=== PATIENT | female | born 1935 | race Caucasian/White ===

== ENCOUNTER → 2019-01-16 | Outpatient (CLI) | payer MEDICARE, OTHER ==
[2015-09-16 22:36] VITALS: BP 114/57
[~2019-01-16] MED LIST: ASPI-482 PO; CLOP75TA PO; FLUC100T7 PO; GABA-586 PO; INSU100C4 SQ; INSU100V31 SQ; INSU100V8 SQ; LISI2.5T PO; MELO15TA23 PO; METO-239 PO; SIMV20TA3 PO; SULF1TAB24 PO
--- NOTE | 2019-01-16 17:23 | RAD ---
EXAM: AP, oblique and lateral views of the right foot DATE: 01/16/2019 11:37 AM INDICATION: RIGHT FOOT PAIN, NO KNOWN INJURY COMPARISON: No Prior FINDINGS: No evidence of acute fracture or dislocation. Decreased bone mineral density. Calcaneal enthesopathy. Small midfoot degenerative osteophytes are seen. IMPRESSION: 1. No evidence of acute fracture or dislocation. 2. Calcaneal enthesopathy 3. Midfoot degenerative change. Electronically signed by: Bobo Baker MD (01/16/2019 5:20 PM) [facility]
== END | disposition home or self-care (01) ==
LOC: PMG 11:19
PROVIDERS: ATTEND Physician Assistant
DX: M77.31 Calcaneal spur, right foot (principal); M19.071 Primary osteoarthritis, right ankle and foot; M25.774 Osteophyte, right foot
CPT/HCPCS: 73630

== ENCOUNTER 2019-07-14 10:35 | Inpatient (IN) | payer MEDICARE, OTHER ==
[~2019-07-14] VITALS: Ht 154.9 cm; Wt 71.4 kg
[2019-07-14] MEDS ORDERED: IV NORMAL SALINE 1,000ML 1,000 ML IV ONE (10:45)
[2019-07-14] MEDS ORDERED: ONDANSETRON PF 4 MG/2 ML VIAL. IV ONE (11:00)
[2019-07-14 11:59] LABS: BASO # 0.1 x10^3/uL (0.0-0.2); BASO % 1 % (0-3); EOS % 0 % (0-3); HEMATOCRIT 37.4 % (36.0-47.0); HEMOGLOBIN 12.4 g/dL (12.0-15.5); LYMPH # 0.6 x10^3/uL (1.0-4.8); LYMPH % 4 % (24-48); MEAN CORPUSCULAR HEMOGLOBIN 31 pg (25-35); MEAN CORPUSCULAR HGB CONC 33 g/dL (31-37); MEAN CORPUSCULAR VOLUME 93 fL (79-100); MONO % 8 % (0-9); NEUT # 11.2 x10^3uL (1.8-7.7); NEUT % 88 % (31-73); PLATELET COUNT 175 x10^3/uL (140-400); RED BLOOD COUNT 4.01 x10^6/uL (3.50-5.40); RED CELL DISTRIBUTION WIDTH 13.8 % (11.5-14.5); WHITE BLOOD COUNT 12.8 x10^3/uL (4.0-11.0)
[2019-07-14 12:20] LABS: ALBUMIN 3.4 g/dL (3.4-5.0); ALBUMIN/GLOBULIN RATIO 0.9 (1.0-1.7); CALCIUM 9.4 mg/dL (8.5-10.1); CREATININE 3.4 mg/dL (0.6-1.0); GFR 12.9; POTASSIUM 3.5 mmol/L (3.5-5.1); TOTAL BILIRUBIN 0.8 mg/dL (0.2-1.0); TOTAL PROTEIN 7.3 g/dL (6.4-8.2)
[2019-07-14 13:37] LABS: BACTERIA,URINE 0 /HPF (0-FEW); BILIRUBIN,URINE NEG (NEG); CLARITY,URINE HAZY; COLOR,URINE YELLOW; GLUCOSE,URINE >=1000 mg/dL (NEG); NITRITE,URINE NEG (NEG); RBC,URINE RARE /HPF (0-2); SQUAMOUS EPITHELIAL CELL,UR OCC /LPF; UROBILINOGEN,URINE 0.2 mg/dL (0.2 mg/dL); WBC,URINE 0 /HPF (0-4)
--- NOTE | 2019-07-14 13:59 | PHYS DOC ---
Past History Past Medical History: CAD, Depression, Gallstones, UTI Past Surgical History: Cholecystectomy Smoking: Non-smoker Alcohol Use: None Drug Use: None Adult General Chief Complaint Chief Complaint: NAUSEA/VOMITING/DIARRHEA HPI HPI 84-year-old female presents via EMS for nausea, vomiting, and diarrhea. The patient had the symptoms last night, but was able to get back to bed. She was found by family this morning sitting next to the side of her bed with vomit and stool on her. She was too weak to get to the bathroom. Family then called EMS. The patient tells me that she was feeling well yesterday. This illness seem to come out of nowhere. The patient has felt mildly short of breath the last few days. She comes from home. She denies fever or chills. Review of Systems Review of Systems Constitutional: Denies fever or chills [] Eyes: Denies change in visual acuity, redness, or eye pain [] HENT: Denies nasal congestion or sore throat [] Respiratory: Denies cough or shortness of breath [] Cardiovascular: No additional information not addressed in HPI [] GI: Denies abdominal pain. Has nausea, vomiting, bloody stools or diarrhea [] : Denies dysuria or hematuria [] Musculoskeletal: Denies back pain or joint pain [] Integument: Denies rash or skin lesions [] Neurologic: Denies headache, focal weakness or sensory changes [] Endocrine: Denies polyuria or polydipsia [] All other systems were reviewed and found to be within normal limits, except as documented in this note. Current Medications Current Medications Current Medications Medications (Trade) Dose Ordered Sig/[facility] Start Time Stop Time Status Last Admin Dose Admin Ondansetron HCl (Zofran) 4 mg 1X ONCE 07/14/19 11:00 07/14/19 11:01 DC 07/14/19 11:43 4 MG Sodium Chloride 1,000 ml @ 1,000 mls/hr 1X ONCE 07/14/19 10:45 07/14/19 11:44 DC 07/14/19 11:43 1,000 MLS/HR Allergies Allergies Allergies Coded Allergies Type Severity Reaction Last Updated Verified iodine Allergy Intermediate 09/13/14 Yes Physical Exam Physical Exam Constitutional: Well developed, well nourished, no acute distress, non-toxic appearance. [] HENT: Normocephalic, atraumatic, bilateral external ears normal, oropharynx moist, no oral exudates, nose normal. [] Eyes: PERRLA, EOMI, conjunctiva normal, no discharge. [] Neck: Normal range of motion, no tenderness, supple, no stridor. [] Cardiovascular:Heart rate regular rhythm, no murmur [] Lungs & Thorax: Bilateral breath sounds clear to auscultation [] Abdomen: Bowel sounds normal, soft, no tenderness, no masses, no pulsatile masses. [] Skin: Warm, dry, no erythema, no rash. [] Back: No tenderness, no CVA tenderness. [] Extremities: No tenderness, no cyanosis, no clubbing, ROM intact, no edema. [] Neurologic: Alert and oriented X 3, normal motor function, normal sensory function, no focal deficits noted. [] Psychologic: Affect normal, judgement normal, mood normal. [] Current Patient Data Lab Results Laboratory Tests Test 07/14/19 11:38 07/14/19 12:55 White Blood Count 12.8 x10^3/uL (4.0-11.0) H Red Blood Count 4.01 x10^6/uL (3.50-5.40) Hemoglobin 12.4 g/dL (12.0-15.5) Hematocrit 37.4 % (36.0-47.0) Mean Corpuscular Volume 93 fL (79-100) Mean Corpuscular Hemoglobin 31 pg (25-35) Mean Corpuscular Hemoglobin Concent 33 g/dL (31-37) Red Cell Distribution Width 13.8 % (11.5-14.5) Platelet Count 175 x10^3/uL (140-400) Neutrophils (%) (Auto) 88 % (31-73) H Lymphocytes (%) (Auto) 4 % (24-48) L Monocytes (%) (Auto) 8 % (0-9) Eosinophils (%) (Auto) 0 % (0-3) Basophils (%) (Auto) 1 % (0-3) Neutrophils # (Auto) 11.2 x10^3uL (1.8-7.7) H Lymphocytes # (Auto) 0.6 x10^3/uL (1.0-4.8) L Monocytes # (Auto) 1.0 x10^3/uL (0.0-1.1) Eosinophils # (Auto) 0.0 x10^3/uL (0.0-0.7) Basophils # (Auto) 0.1 x10^3/uL (0.0-0.2) Sodium Level 146 mmol/L (136-145) H Potassium Level 3.5 mmol/L (3.5-5.1) Chloride Level 108 mmol/L (98-107) H Carbon Dioxide Level 25 mmol/L (21-32) Anion Gap 13 (6-14) Blood Urea Nitrogen 40 mg/dL (7-20) H Creatinine 3.4 mg/dL (0.6-1.0) H Estimated GFR (Cockcroft-Gault) 12.9 BUN/Creatinine Ratio 12 (6-20) Glucose Level 189 mg/dL (70-99) H Calcium Level 9.4 mg/dL (8.5-10.1) Total Bilirubin 0.8 mg/dL (0.2-1.0) Aspartate Amino Transferase (AST) 23 U/L (15-37) Alanine Aminotransferase (ALT) 17 U/L (14-59) Alkaline Phosphatase 77 U/L (46-116) Total Protein 7.3 g/dL (6.4-8.2) Albumin 3.4 g/dL (3.4-5.0) Albumin/Globulin Ratio 0.9 (1.0-1.7) L Urine Collection Type Unknown Urine Color Yellow Urine Clarity Hazy Urine pH 5.0 Urine Specific Prospect 1.015 Urine Protein >100 mg/dl (NEG-TRACE) Urine Glucose (UA) >=1000 mg/dL (NEG) Urine Ketones (Stick) Neg mg/dL (NEG) Urine Blood Small (NEG) Urine Nitrite Neg (NEG) Urine Bilirubin Neg (NEG) Urine Urobilinogen Dipstick 0.2 mg/dL (0.2 mg/dL) Urine Leukocyte Esterase Neg (NEG) Urine RBC Rare /HPF (0-2) Urine WBC 0 /HPF (0-4) Urine Squamous Epithelial Cells Occ /LPF Urine Bacteria 0 /HPF (0-FEW) EKG EKG [] Radiology/Procedures Radiology/Procedures [] Course & Med Decision Making Course & Med Decision Making Pertinent Labs and Imaging studies reviewed. (See chart for details) The patient's labs remarkable for slightly elevated white count. Her creatinine is also 3.4. Her baseline appears to be 1.7. The patient does appear to be hydrated. She is getting IV fluids. The patient's chest x-ray is significant for a left-sided pneumonia. She has not been in a care facility within [address] her on Rocephin and azithromycin. Patient is in agreement with admission. I discussed the patient with Dr. Blair and he has accepted her for admission. [] Dragon Disclaimer Dragon Disclaimer This electronic medical record was generated, in whole or in part, using a voice recognition dictation system. Departure Departure: Impression: Primary Impression: USHA (acute kidney injury) Additional Impressions: Vomiting and diarrhea Pneumonia involving left lung Disposition: ADMITTED INPATIENT Admitting Physician: Johnny Blair Condition: STABLE Referrals: ROGELIO CLAY (PCP) Problem Qualifiers Additional Impressions: Pneumonia involving left lung Pneumonia type: due to unspecified organism Lung location: lower lobe of lung Qualified Codes: J18.1 - Lobar pneumonia, unspecified organism XIN MENON DO Jul 14, 2019 13:59
[2019-07-14] MEDS ORDERED: ONDANSETRON PF 4 MG/2 ML VIAL. IV PRN (14:15)
[2019-07-14] MEDS ORDERED: ACETAMINOPHEN 325 MG TABLET PO PRN (14:15)
--- NOTE | 2019-07-14 14:27 | RAD ---
CHEST AP ONLY Clinical Indication: Cough Comparison: 09/16/2015 two-view chest x-ray exam. Findings: Portable frontal view chest was obtained. The cardiomediastinal silhouette is normal. Opacification involving the left mid lung field noted. Nodular component is questioned as well the left perihilar region. There is no pneumothorax. No pleural effusion is appreciated. No acute bone abnormality. Osteopenia noted. IMPRESSION: Left midlung opacification including nodular density which is concerning for infiltrate. Interval follow-up two-view chest x-ray exam to assess resolution is recommended. Electronically signed by: Peng Cutler MD (07/14/2019 2:24 PM) [facility]
[2019-07-14] MEDS ORDERED: AZITHROMYCIN 500 MG in IV NORMAL SALINE 250ML 250 ML IV ONE (14:30)
[2019-07-14] MEDS ORDERED: IV NORMAL SALINE 250ML 250 ML ONE ×2 (14:32→14:51)
[2019-07-14] MEDS ORDERED: IV NORMAL SALINE 50ML 50 ML ONE (14:32)
[2019-07-14] MEDS ORDERED: cefTRIAXone SODIUM 1 GM VIAL ONE (14:32)
[2019-07-14] MEDS ORDERED: AZITHROMYCIN 500 MG VIAL. IV ONE ×2 (14:32→14:51)
--- NOTE | 2019-07-14 19:30 | NUR ---
The patient, NICK MASON, 84 y/o, F admitted by DIANA CASTANEDA MD, to room 107, was given written information regarding hospital policies, unit procedures and contact persons. Valuables were checked and left with the pt. Physical and social needs were assessed. Medication and surgical history were discussed. Pt placed on telemetry. Will continue to monitor.
[2019-07-14] MEDS ORDERED: traMADol 50 MG TABLET PO PRN (19:45)
--- NOTE | 2019-07-14 19:57 | HP ---
ADMIT DATE: 07/14/2019 ATTENDING PHYSICIAN: Dr. Castaneda. CHIEF COMPLAINT: Weakness and GI symptoms. HISTORY OF PRESENT ILLNESS: The patient is an 84-year-old female with multiple medical issues. She is diabetic for the last 2 days. She has had nausea, vomiting, profound weakness to the point she cannot walk. As part of the workup, she was found to have an infiltrate on the chest x-ray involving the left mid lung field. She has had some minimal shortness of breath. She has community-acquired pneumonia. She is also diabetic. I also noticed a creatinine of 3.4 mg/dL. She is not on a diuretic. She had been on the nonsteroidal agent along with sulfa drugs. These drugs have been held. We will monitor daily chemistries along with IV hydration and IV antibiotics. PAST MEDICAL HISTORY: Significant for type 2 diabetes, chronic kidney disease stage 4, diabetic nephropathy, essential hypertension, pain in her legs with the diabetic neuropathy and degenerative arthritis. ALLERGIES: She has allergies to IODINE. She is a nonsmoker, nondrinker. CURRENT MEDICINES: Include aspirin, Plavix, Diflucan, Neurontin, insulin regular and Lantus, lisinopril, Mobic, metoprolol, Zocor and trimethoprim sulfa. SOCIAL HISTORY: She is a nonsmoker, nondrinker. FAMILY HISTORY: Noncontributory. REVIEW OF SYSTEMS: Significant for the localized GI symptoms. No recent travel, no fevers, mild chills, some nausea. She has had significant arthritis with bilateral feet pain. All other systems were reviewed and determined to be negative. PAST SURGICAL HISTORY: Includes cholecystectomy. PHYSICAL EXAMINATION: GENERAL: When I saw her, this is alert, elderly female who gave succinct history. INITIAL VITAL SIGNS: Showed a blood pressure of 117/57, pulse was 75 and regular. She was afebrile. HEENT: Head is without trauma. Pupils were reactive. Sclerae nonicteric. Oropharynx clear. Mucous membranes dry. NECK: Supple, no bruits identified. LUNGS: Minimal rhonchi at the left mid lung field. CARDIOVASCULAR: Showed distant heart tones. No obvious gallops. Peripheral pulses are palpable and full. ABDOMEN: Soft, scaphoid, nontender, no organomegaly. Bowel sounds are hypoactive. EXTREMITIES: Showed no cyanosis or edema. NEUROLOGIC: Focally intact. Speech is fluent. She is weak and nonambulatory at this time. PERTINENT LABORATORY AND X-RAY STUDIES: Chest x-ray as noted. LABORATORY DATA: Hemoglobin is 12.4 g/dL with white count of 12,800. Chemistry panel showed a sodium of 146, potassium 3.5 mEq per liter, BUN 40, creatinine 3.4 mg/dL. Nonfasting blood sugar 189 mg/dL. ASSESSMENT: 1. An 84-year-old female with community-acquired pneumonia, left mid lung field. 2. Gastroenteritis. 3. Dehydration. 4. Acute on chronic renal failure. 5. Diabetic neuropathy. 6. Diabetic nephropathy. 7. Degenerative arthritis. PLAN: 1. Admit to the inpatient unit. 2. Gentle IV hydration. 3. I have held her nonsteroidal and Bactrim. 4. Serial chemistries. 5. Diabetic diet. 6. Accu-Cheks. The patient is a DNR per advanced directive. We were respect to her wishes. DIANA CASTANEDA MD DR: YASMEEN/dilia JOB#: [id number] / [id number]
[2019-07-14 20:07] VITALS: BP 153/74
[2019-07-14] MEDS: METOPROLOL TART IMMED RELEASE 25 MG TABLET PO SCH (22:15)
[2019-07-14 22:43] VITALS: BP 124/67
[2019-07-15 05:51] VITALS: BP 127/64
[2019-07-15] MEDS: PANTOPRAZOLE 40 MG TABLET. PO SCH (09:21)
[2019-07-15] MEDS: GABAPENTIN 300 MG CAPSULE. PO SCH ×2 (09:21→21:27)
[2019-07-15] MEDS: CLOPIDOGREL BISULFATE 75 MG TABLET PO SCH (09:22)
[2019-07-15] MEDS: LINAGLIPTIN 5 MG TABLET PO SCH (09:22)
[2019-07-15] MEDS: METOPROLOL SUCC 24HR ER 25 MG TAB.ER.24H. PO SCH (09:22)
[2019-07-15] MEDS: INSULIN GLARGINE SYRINGE. SQ SCH ×2 (09:23→21:31)
[2019-07-15] MEDS: INSULIN LISPRO 300 UNITS/3 ML VIAL. SQ SCH ×3 (09:24→17:27)
[2019-07-15] MEDS: METOPROLOL TART IMMED RELEASE 25 MG TABLET PO SCH ×2 (09:26→21:27)
[2019-07-15 09:29] LABS: CALCIUM 8.4 mg/dL (8.5-10.1); CREATININE 3.7 mg/dL (0.6-1.0); GFR 11.7; POTASSIUM 4.3 mmol/L (3.5-5.1)
[2019-07-15 11:12] VITALS: BP 148/81
[2019-07-15] MEDS: IV NORMAL SALINE 1,000ML 1,000 ML IV SCH (11:21)
[2019-07-15 14:31] VITALS: BP 149/67
[2019-07-15] MEDS: AZITHROMYCIN 500 MG in IV NORMAL SALINE 250ML 250 ML IV SCH (14:47)
[2019-07-15 20:01] VITALS: BP 164/75
[2019-07-15] MEDS: LACTOBACILLUS RHAMNOSUS GG 1 CAPSULE. PO SCH (21:27)
[2019-07-15] MEDS: ASPIRIN ENTERIC COATED 81 MG TABLET.DR. PO SCH (21:27)
[2019-07-15] MEDS: SIMVASTATIN 20 MG TABLET PO SCH (21:28)
--- NOTE | 2019-07-16 03:11 | PN ---
DATE: ATTENDING PHYSICIAN: Dr. Castaneda. CHIEF COMPLAINT: Weakness. SUBJECTIVE: The patient is doing better. She had a good night sleep. She is up in her chair. She denied any further nausea, vomiting, diarrhea. She denied any dyspnea. She is drinking her coffee. Sugars are a bit up because we held her insulin last night. This will be restarted. She denied any chest pain, palpitation, cough or congestion. Followup lab work this morning has been ordered and still pending. We had held her nonsteroidal anti-inflammatory drug, her lisinopril and her trimethoprim sulfa. She has not had any further GI symptoms. PHYSICAL EXAMINATION: VITAL SIGNS: Her blood pressure today is 127/64, pulse is 66 and regular, temperature 98.1, oxygen saturation is 92% on room air. HEENT: Head is without trauma. Pupils are reactive. Sclerae nonicteric. The oropharynx is clear. NECK: Supple, no bruits identified. LUNGS: Otherwise clear. Good breath sounds. I do not appreciate any rhonchi. CARDIOVASCULAR: Showed regular heart tones. No obvious gallops. Peripheral pulses palpable and full. ABDOMEN: Soft, normal bowel sounds. No guarding or rebound tenderness. EXTREMITIES: Show no cyanosis or edema. NEUROLOGIC: Function is focally intact. IMAGING STUDIES: X-ray on admission noted. Followup is pending at this time. ASSESSMENT: 1. An 84-year-old female with community-acquired pneumonia, clinically stable and improved. 2. Gastroenteritis, self-limiting, resolved. 3. Dehydration, slightly better today, she appears to be euvolemic. 4. [id number] renal failure. 5. Diabetic neuropathy. 6. Diabetic nephropathy. 7. Type 2 diabetes. 8. Degenerative arthritis. PLAN: 1. Continue antibiotics as ordered. 2. I have held her Mobic, Bactrim and lisinopril, which all can aggravate her elevated creatinine and decrease her creatinine clearance. 3. Serial chemistries. Her ____ is still pending this morning. 4. Diabetic diet. 5. Restarted insulin regimen. 6. Followup chest x-ray in the morning. 7. Continue antibiotics. The patient remains a DNR per advanced directives. DIANA CASTANEDA MD DR: YASMEEN/dilia JOB#: [id number] / [id number]
[2019-07-16] MEDS: IV NORMAL SALINE 1,000ML 1,000 ML IV SCH (04:28)
[2019-07-16 06:18] VITALS: BP 131/68
[2019-07-16 06:28] LABS: CALCIUM 8.2 mg/dL (8.5-10.1); CREATININE 3.1 mg/dL (0.6-1.0); GFR 14.3; POTASSIUM 4.2 mmol/L (3.5-5.1)
[2019-07-16] MEDS: PANTOPRAZOLE 40 MG TABLET. PO SCH (08:49)
[2019-07-16] MEDS: CLOPIDOGREL BISULFATE 75 MG TABLET PO SCH (08:50)
[2019-07-16] MEDS: METOPROLOL SUCC 24HR ER 25 MG TAB.ER.24H. PO SCH (08:50)
[2019-07-16] MEDS: METOPROLOL TART IMMED RELEASE 25 MG TABLET PO SCH ×2 (08:50→21:54)
[2019-07-16] MEDS: LACTOBACILLUS RHAMNOSUS GG 1 CAPSULE. PO SCH ×2 (08:50→21:54)
[2019-07-16] MEDS: LINAGLIPTIN 5 MG TABLET PO SCH (08:50)
[2019-07-16] MEDS: GABAPENTIN 300 MG CAPSULE. PO SCH ×2 (08:50→21:54)
[2019-07-16] MEDS: INSULIN LISPRO 300 UNITS/3 ML VIAL. SQ SCH ×3 (08:52→16:30)
--- NOTE | 2019-07-16 09:21 | NUR ---
Patient is alert and oriented x4. Talkative this morning. States she has some pain with coughing but refuses pain medication. Pt sitting up in chair, breathing well, lung sounds clear. WCTM.
--- NOTE | 2019-07-16 09:24 | PN ---
DATE: 07/16/2019 ATTENDING PHYSICIAN: Dr. Castaneda. CHIEF COMPLAINT: Weakness. SUBJECTIVE: The patient is alert and doing well. She did not sleep as well as the night before. She denied any pain, dyspnea, shortness of breath. She is up in a chair. She ambulates independently without any assistance. Her appetite has been fair. Her family was by yesterday. She has 4 daughters that live in the area. OBJECTIVE FINDINGS: VITAL SIGNS: Her blood pressure today is 131/68, her pulse is 68 and regular. She is afebrile. HEENT: Head is without trauma. Pupils are reactive. Sclerae nonicteric. Oropharynx clear. LUNGS: Fairly good breath sounds and air movement without any rales, rhonchi or wheezing. CARDIOVASCULAR: Showed regular heart tones. No obvious murmurs or rubs. ABDOMEN: Soft, scaphoid, nontender, no organomegaly. Bowel sounds are normoactive. EXTREMITIES: Show no cyanosis or edema. NEUROLOGIC: Focally intact. Speech is fluent. PERTINENT LABORATORY STUDIES: Her followup chemistry today showed an improvement in her serum creatinine, it is down to 3.1 mg/dL. Her BUN is 39, potassium 4.2 mEq, nonfasting blood sugar 102. This is an improvement from yesterday's BUN and creatinine. ASSESSMENT: 1. An 84-year-old female with community-acquired pneumonia, stable. 2. Gastroenteritis self-limiting, resolved. 3. Dehydration. 4. Acute on chronic renal failure with improving creatinine. 5. Diabetic neuropathy. 6. Diabetic nephropathy. 7. Type 2 diabetes. 8. Degenerative arthritis. PLAN: 1. Continue antibiotics as ordered. 2. We have held her Mobic, Bactrim and lisinopril. We are hydrating her gently and we will order daily creatinine. 3. Followup chest x-ray. 4. Diabetic diet. 5. Insulin as ordered. 6. Discharge planning if serum creatinine improves, she can be discharged in the next 1-2 days with outpatient followup. She is alert and asymptomatic at this time. The plan has been discussed at length with her family. DIANA CASTANEDA MD DR: YASMEEN/dilia JOB#: [id number] / [id number]
--- NOTE | 2019-07-16 09:28 | RAD ---
AP view of the chest. Comparison: Chest radiograph dated 07/14/2019. Indication: Findings: Unchanged lung volume. Slightly improved but persistent left midlung zone predominant heterogenous airspace opacities. Unchanged pulmonary vasculature. No pleural effusion or pneumothorax. The cardiomediastinal silhouette is unchanged. Unchanged atherosclerotic thoracic aorta. IMPRESSION: Slightly improved but persistent left midlung zone heterogenous airspace opacities. Electronically signed by: Brice Paez MD (07/16/2019 9:25 AM) [facility]
[2019-07-16 11:06] VITALS: BP 181/72
[2019-07-16] MEDS: IV 1/2 NORMAL SALINE 1,000 ML IV SCH (13:48)
[2019-07-16] MEDS ORDERED: METOPROLOL SUCC 24HR ER 25 MG TAB.ER.24H. PO ONE (14:00)
[2019-07-16 14:42] VITALS: BP 184/73
[2019-07-16] MEDS: AZITHROMYCIN 500 MG in IV NORMAL SALINE 250ML 250 ML IV SCH (14:45)
--- NOTE | 2019-07-16 17:05 | NUR ---
Held patients insulin at dinner due to blood glucose of 74. Pt states she doesn't take her insulin at home, we are giving 10units scheduled with meals and BG 74. RN is concerned this will drop patient further. PRISCA.
[2019-07-16 19:41] VITALS: BP 174/86
[2019-07-16] MEDS ORDERED: METOPROLOL SUCC 24HR ER 25 MG TAB.ER.24H. PO SCH (21:00)
[2019-07-16] MEDS: INSULIN GLARGINE SYRINGE. SQ SCH (21:00)
[2019-07-16] MEDS: SIMVASTATIN 20 MG TABLET PO SCH (21:54)
[2019-07-16] MEDS: ASPIRIN ENTERIC COATED 81 MG TABLET.DR. PO SCH (21:54)
[2019-07-16 23:48] VITALS: BP 175/75
[2019-07-17 06:03] VITALS: BP 170/71
[2019-07-17] MEDS: IV 1/2 NORMAL SALINE 1,000 ML IV SCH ×2 (06:10→22:50)
[2019-07-17 06:22] LABS: CALCIUM 8.3 mg/dL (8.5-10.1); CREATININE 2.7 mg/dL (0.6-1.0); GFR 16.8; POTASSIUM 4.1 mmol/L (3.5-5.1)
[2019-07-17] MEDS: INSULIN LISPRO 300 UNITS/3 ML VIAL. SQ SCH ×3 (07:30→16:30)
[2019-07-17] MEDS: PANTOPRAZOLE 40 MG TABLET. PO SCH (09:12)
[2019-07-17 11:20] VITALS: BP 201/78
[2019-07-17] MEDS: LINAGLIPTIN 5 MG TABLET PO SCH (11:50)
[2019-07-17] MEDS: METOPROLOL TART IMMED RELEASE 25 MG TABLET PO SCH ×2 (11:50→20:58)
[2019-07-17] MEDS: CLOPIDOGREL BISULFATE 75 MG TABLET PO SCH (11:50)
[2019-07-17] MEDS: LACTOBACILLUS RHAMNOSUS GG 1 CAPSULE. PO SCH ×2 (11:51→20:57)
[2019-07-17] MEDS: GABAPENTIN 300 MG CAPSULE. PO SCH ×2 (11:51→20:57)
[2019-07-17 15:55] VITALS: BP 187/75
[2019-07-17] MEDS: AZITHROMYCIN 500 MG in IV NORMAL SALINE 250ML 250 ML IV SCH (17:43)
--- NOTE | 2019-07-17 19:00 | NUR ---
Shift review Pt has been pleasant and cooperative with all cares throughout the shift and has had several family visitors who are also pleasant and cooperative. Pt did not get insulin with breakfast or dinner given blood sugars but required coverage at lunch time. Pt has not c/o pain during shift, VSS. Pt's afternoon IV ABX given late d/t IV leaking at beginning of shift and requiring removal. Dr. Ram initially said IV did not have to be replaced, then ordered IV replaced and ABX given when this RN called to ask whether ABXs should be given as pt is anticipated to d/c tomorrow. Pt took a nap during the afternoon between visitors. Sheldon Starks RN Addendum: 07/17/19 at 2030 by RASHAD STARKS RN RN Pt's BPs have been high all shift, with her pressure at 191 being 199/95. Dr. Ram was called, and he ordered 25mg Hydralazine TID. Order repeated back to provider and entered into [employer].
[2019-07-17 19:15] VITALS: BP 199/95
[2019-07-17] MEDS: ASPIRIN ENTERIC COATED 81 MG TABLET.DR. PO SCH (20:57)
[2019-07-17] MEDS: hydrALAZINE 10 MG TABLET PO SCH (20:57)
[2019-07-17] MEDS: INSULIN GLARGINE SYRINGE. SQ SCH (20:58)
[2019-07-17] MEDS: SIMVASTATIN 20 MG TABLET PO SCH (20:58)
--- NOTE | 2019-07-17 22:47 | PN ---
DATE: 07/17/2019 SUBJECTIVE: The patient is sitting comfortably in her chair, in no apparent distress. On questioning her, she denied any complaints, in particular denied any nausea, vomiting, or diarrhea. Denied any chest pain, shortness of breath, cough or phlegm. Nursing staff stated that her blood pressure is extremely high at 200/70. She apparently was on lisinopril, her lisinopril was put on hold as she has acute on chronic kidney injury and she is now on metoprolol 25 mg twice a day. PHYSICAL EXAMINATION: GENERAL: When I examined her this morning, she looked well and was clearly in no apparent respiratory distress. No pallor, jaundice, cyanosis, or thyromegaly. No jugular venous distension. No lower limb edema. VITAL SIGNS: Her heart rate was 61, blood pressure was 170/71, temperature was 98.2, respiratory rate 20, and oxygen saturation was 95%. HEAD, EYES, EARS, NOSE AND THROAT: Showed normocephalic, atraumatic. NECK: Supple. HEART: Showed normal first and second heart sounds with no gallop, rub or murmur. CHEST: Clear to auscultation. No crepitation or rhonchi. ABDOMEN: Distended, soft, nontender. No guarding or rigidity. No organomegaly. All hernial orifices intact. Bowel sounds normal. NEUROLOGIC: She was awake, alert, responding appropriately. All cranial nerves intact. She moves extremities without difficulty. Her intake was 1800, output was 200. LABORATORY DATA: As of this morning showed a serum sodium 144, potassium 4.1, chloride 111, bicarbonate 23, anion gap of 10, BUN 35, creatinine 2.7, estimated GFR was 17 mL per minute. Her glucose was 96, calcium was 8.3. Her white cell count was 12,800, hemoglobin 12, hematocrit 37, MCV 93, and platelet count of 175,000. ASSESSMENT: 1. Community-acquired pneumonia for which she is on ceftriaxone and Zithromax. 2. Gastroenteritis, resolved. The patient has no further episodes of nausea, vomiting or diarrhea. 3. Dehydration. 4. Acute on chronic kidney injury, improving. Her creatinine came down from 3.7-2.7. 5. Diabetic neuropathy. 6. Diabetic nephropathy. 7. Type 2 diabetes. 8. Degenerative arthritis. PLAN: To continue with antibiotics. Continue holding her lisinopril. I will check her blood pressure again in 2 hours' time and if the blood pressure continued to be high, would probably start her on hydralazine as her heart rate is slow around in the 60s. We will repeat her lab works tomorrow. If she is back to her baseline of around 1.8-2, she can be discharged home, provided her blood pressure is better controlled. VINCE PAIGE MD DR: DEEJAY/dilia JOB#: [id number] / [id number]
[2019-07-17 23:30] VITALS: BP 162/81
[2019-07-18 05:41] VITALS: BP 177/75
[2019-07-18 06:31] LABS: HEMOGLOBIN 9.7 g/dL (12.0-15.5); RED BLOOD COUNT 3.09 x10^6/uL (3.50-5.40); RED CELL DISTRIBUTION WIDTH 13.6 % (11.5-14.5); WHITE BLOOD COUNT 6.9 x10^3/uL (4.0-11.0)
[2019-07-18 06:35] LABS: CALCIUM 8.8 mg/dL (8.5-10.1); CREATININE 2.6 mg/dL (0.6-1.0); GFR 17.5
[2019-07-18] MEDS: GABAPENTIN 300 MG CAPSULE. PO SCH ×2 (07:35→21:02)
[2019-07-18] MEDS: hydrALAZINE 10 MG TABLET PO SCH (07:35)
[2019-07-18] MEDS: CLOPIDOGREL BISULFATE 75 MG TABLET PO SCH (07:35)
[2019-07-18] MEDS: PANTOPRAZOLE 40 MG TABLET. PO SCH (07:35)
[2019-07-18] MEDS: LACTOBACILLUS RHAMNOSUS GG 1 CAPSULE. PO SCH ×2 (07:35→21:01)
[2019-07-18] MEDS: LINAGLIPTIN 5 MG TABLET PO SCH (07:36)
[2019-07-18] MEDS: METOPROLOL TART IMMED RELEASE 25 MG TABLET PO SCH ×2 (07:36→21:02)
[2019-07-18] MEDS: INSULIN LISPRO 300 UNITS/3 ML VIAL. SQ SCH ×3 (07:46→17:07)
[2019-07-18 10:41] VITALS: BP 198/66
[2019-07-18 15:02] VITALS: BP 197/67
[2019-07-18] MEDS: AZITHROMYCIN 250 MG TABLET. PO SCH (15:25)
[2019-07-18 18:34] VITALS: BP 205/73
[2019-07-18 20:35] VITALS: BP 181/80
[2019-07-18] MEDS: INSULIN GLARGINE SYRINGE. SQ SCH (21:00)
[2019-07-18] MEDS: SIMVASTATIN 20 MG TABLET PO SCH (21:01)
[2019-07-18] MEDS: ASPIRIN ENTERIC COATED 81 MG TABLET.DR. PO SCH (21:01)
[2019-07-18 22:30] VITALS: BP 137/68
--- NOTE | 2019-07-19 00:53 | PN ---
DATE: 07/18/2019 SUBJECTIVE: The patient is sitting comfortably in her chair, in no apparent distress. On questioning her, denied any complaint. Nursing staff did not voice any concerns, but she had an uneventful night except that the blood pressure, however, continued to be high as we discontinued the lisinopril due to impaired kidney function. Her heart rate is also borderline, so we cannot push the metoprolol further and therefore, I started her on hydralazine 25 mg and I have increased it to 50 mg 3 times a day. PHYSICAL EXAMINATION: GENERAL: When I examined her this morning, she looked well, slightly pale, but no jaundice, cyanosis or thyromegaly. No jugular venous distension. No limb edema. VITAL SIGNS: Her heart rate was 61, blood pressure was 198/66, temperature was 98, respiratory rate was 20 and oxygen saturation was 97%. HEAD, EYES, EARS, NOSE AND THROAT: Showed normocephalic, atraumatic. NECK: Supple. HEART: Showed normal first and second heart sounds with no gallop, rub or murmur. CHEST: Clear to auscultation. No crepitation or rhonchi. ABDOMEN: Distended, soft, nontender. No guarding or rigidity. No organomegaly. All hernial orifice intact. Bowel sounds normal. NEUROLOGIC: She is hard of hearing, but otherwise all cranial nerves intact. She moves extremities without difficulty. She ambulates without assistance or assistive devices. Her intake over the last 24 hours was 970, output was 700. LABORATORY DATA: As of this morning, her white cell count was 6900, hemoglobin 9.7, hematocrit 29, MCV 94 and platelet count of 160,000. Serum sodium was 142, potassium 4, chloride 109, bicarbonate 22, anion gap of 11, BUN 32, creatinine 2.6, estimated GFR was 17.5. Her glucose was 122, calcium was 8.8. Urinalysis was unremarkable. Chest x-ray showed slightly improved, but persistent left mid lung zone heterogenous airspace opacities. ASSESSMENT: 1. Community-acquired pneumonia, for which continues to be on ceftriaxone and Zithromax. 2. Gastroenteritis, resolved. The patient has no further episodes of nausea, vomiting or diarrhea. 3. Dehydration, resolved. 4. Acute on chronic kidney injury, improving. Her creatinine is down from 3.7 to 2.6. Her most recent creatinine available in the computer was 1.18 in 2014. 5. Diabetic neuropathy. 6. Diabetic nephropathy. 7. Type 2 diabetes mellitus. 8. Degenerative arthritis. PLAN: To continue with IV antibiotic. I have already discontinued her lisinopril. I started her on increased hydralazine to 50 mg 3 times a day. We will discontinue the IV fluid and we will contact her primary care physician to see her baseline creatinine. Once her blood pressure is better controlled, she can be discharged home to continue treatment as an outpatient. VINCE PAIGE MD DR: DEEJAY/dilia JOB#: [id number] / [id number]
[2019-07-19 05:28] VITALS: BP 150/69
[2019-07-19] MEDS: PANTOPRAZOLE 40 MG TABLET. PO SCH (07:33)
[2019-07-19] MEDS: METOPROLOL TART IMMED RELEASE 25 MG TABLET PO SCH (08:45)
[2019-07-19] MEDS: LACTOBACILLUS RHAMNOSUS GG 1 CAPSULE. PO SCH ×2 (08:46→21:16)
[2019-07-19] MEDS: LINAGLIPTIN 5 MG TABLET PO SCH (08:46)
[2019-07-19] MEDS: CLOPIDOGREL BISULFATE 75 MG TABLET PO SCH (08:46)
[2019-07-19] MEDS: INSULIN LISPRO 300 UNITS/3 ML VIAL. SQ SCH ×3 (08:47→16:30)
[2019-07-19] MEDS: GABAPENTIN 300 MG CAPSULE. PO SCH ×2 (09:18→21:16)
[2019-07-19 10:47] VITALS: BP 166/71
[2019-07-19] MEDS ORDERED: amLODIPine BESYLATE 10 MG TABLET PO ONE (14:30)
[2019-07-19] MEDS ORDERED: METOPROLOL TART IMMED RELEASE 25 MG TABLET PO ONE (14:30)
[2019-07-19] MEDS: AZITHROMYCIN 250 MG TABLET. PO SCH (15:12)
[2019-07-19 15:16] VITALS: BP 181/74
[2019-07-19 18:50] VITALS: BP 172/75
[2019-07-19] MEDS: INSULIN GLARGINE SYRINGE. SQ SCH (21:00)
[2019-07-19] MEDS: CEFDINIR 300 MG CAPSULE PO SCH (21:16)
[2019-07-19] MEDS: ASPIRIN ENTERIC COATED 81 MG TABLET.DR. PO SCH (21:16)
[2019-07-19] MEDS: SIMVASTATIN 20 MG TABLET PO SCH (21:16)
[2019-07-19] MEDS: METOPROLOL TART IMMED RELEASE 50 MG TABLET PO SCH (21:17)
[2019-07-19 21:23] VITALS: BP 149/61
--- NOTE | 2019-07-20 01:07 | PN ---
DATE: 07/19/2019 SUBJECTIVE: The patient resting slightly propped up in bed, in no apparent respiratory distress. She is awake, alert. Her blood pressure continued to be suboptimally controlled. Her blood pressure was 166/71, despite being on 25 mg of metoprolol twice a day and 100 mg of hydralazine 3 times a day. PHYSICAL EXAMINATION: GENERAL: When I examined her, she was somewhat pale, but no jaundice, cyanosis, or thyromegaly. No jugular venous distension. No limb edema. VITAL SIGNS: Her heart rate was 74, blood pressure was 166/71, temperature was 98.3, respiratory rate 20, and oxygen saturation was 96%. HEAD, EYES, EARS, NOSE AND THROAT: Showed normocephalic, atraumatic. NECK: Supple. HEART: Showed normal first and second heart sounds. No gallop or murmur. CHEST: Clear to auscultation. No crepitation or rhonchi. ABDOMEN: Distended, soft, nontender. No guarding or rigidity. No organomegaly. All hernial orifice intact. Bowel sounds normal. NEUROLOGIC: She was awake, alert, responding appropriately. All cranial nerves intact. She moves extremities without difficulty. She ambulates without assistance or assistive devices. Her intake over the last 24 hours was 1900, no output was recorded. LABORATORY WORK: As of yesterday showed a white cell count 6900, hemoglobin 10, hematocrit 29, MCV 94 and platelet count 160,000. Her chemistry as of yesterday showed a serum sodium 142, potassium 4, chloride 109, bicarbonate 22, anion gap of 11, BUN 32, creatinine 2.6, estimated GFR was 17 mL per minute. Her glucose was 122 and calcium was 8.8. ASSESSMENT: 1. Community-acquired pneumonia for which she is now on Zithromax and cefdinir. 2. Gastroenteritis, resolved. The patient has no further episodes of nausea, vomiting or diarrhea. 3. Dehydration, resolved. 4. Acute on chronic kidney injury, improving. Her creatinine is down from 3.7-2.6. Her most recent creatinine available in the computer was 1.8. 5. Diabetic neuropathy. 6. Diabetic nephropathy. 7. Type 2 diabetes mellitus. 8. Degenerative arthritis. 9. Poorly controlled hypertension. PLAN: To continue with oral antibiotic. Increase her hydralazine to 100 mg 3 times a day. I will increase her metoprolol to 50 mg twice a day and hopefully discharge her back home tomorrow. VINCE PAIGE MD DR: DEEJAY/dilia JOB#: [id number] / [id number]
[2019-07-20 01:43] VITALS: BP 118/60
[2019-07-20 05:45] VITALS: BP 124/55
[2019-07-20 06:17] LABS: CALCIUM 8.5 mg/dL (8.5-10.1); CREATININE 2.9 mg/dL (0.6-1.0); GFR 15.5; POTASSIUM 4.1 mmol/L (3.5-5.1)
[2019-07-20] MEDS: INSULIN LISPRO 300 UNITS/3 ML VIAL. SQ SCH (07:30)
[2019-07-20] MEDS: LACTOBACILLUS RHAMNOSUS GG 1 CAPSULE. PO SCH (08:22)
[2019-07-20] MEDS: PANTOPRAZOLE 40 MG TABLET. PO SCH (08:22)
[2019-07-20] MEDS: METOPROLOL TART IMMED RELEASE 50 MG TABLET PO SCH (08:22)
[2019-07-20 08:23] VITALS: BP 124/55
[2019-07-20] MEDS: GABAPENTIN 300 MG CAPSULE. PO SCH (08:23)
[2019-07-20] MEDS: LINAGLIPTIN 5 MG TABLET PO SCH (08:23)
[2019-07-20] MEDS: CEFDINIR 300 MG CAPSULE PO SCH (08:23)
[2019-07-20] MEDS: CLOPIDOGREL BISULFATE 75 MG TABLET PO SCH (08:28)
[2019-07-20] MEDS ORDERED: amLODIPine BESYLATE 10 MG TABLET PO SCH (09:00)
[2019-07-20] MEDS ORDERED: HYDR100T24 PO (10:41)
[2019-07-20] MEDS ORDERED: METO50TA6 PO (10:41)
[2019-07-20] MEDS ORDERED: CEFD300C PO (10:41)
[2019-07-20] MEDS ORDERED: AZIT250T PO (10:41)
[2019-07-20] MEDS ORDERED: DOCUSATE SODIUM 100 MG CAPSULE PO SCH (11:00)
[2019-07-20] MEDS ORDERED: POLYETHYLENE GLYCOL 3350 17 GM PACKET. PO SCH (11:00)
--- NOTE | 2019-07-20 12:15 | NUR ---
Discharge Note: NICK MASON [address] Discharge instructions and discharge home medications reviewed with Patient and a copy given. All questions have been answered and understanding verbalized. The following instructions and handouts were given: Metoprolol, hydralazine, cefdinir, zithromax. Patient discharged to home with home health.
--- NOTE | 2019-07-20 22:23 | DS ---
DATE OF DISCHARGE: 07/20/2019 HOSPITAL COURSE: The patient is an 84-year-old female patient who was admitted on 07/14/2019 with apparently recurrent bouts of nausea, vomiting, and diarrhea. She was also dehydrated and at that time, she was found to have [id number] kidney injury and also was treated for community-acquired pneumonia. She was treated with IV ceftriaxone as well as Zithromax as well as IV fluid. Her creatinine was high at 3.4 and it is up to 3.7, so we discontinued her lisinopril, Bactrim, and meloxicam and her kidney function has steadily improved; however, unfortunately, her blood pressure became extremely elevated and therefore, we started her on hydralazine and increased her metoprolol to initially 25 and then eventually to 50 mg twice a day, hydralazine also was increased up to 100 mg 3 times a day. Finally, her symptoms have improved. PHYSICAL EXAMINATION: GENERAL: When I saw her this morning, she was sitting comfortably in her chair, in no apparent respiratory distress, pale, no jaundice, cyanosis, or thyromegaly. No jugular venous distention. No limb edema. VITAL SIGNS: Her heart rate was 72, blood pressure 124/55, temperature was 99.9, respiratory rate was 20, and oxygen saturation was 94% on room air. HEAD, EYES, EARS, NOSE AND THROAT: Showed normocephalic, atraumatic. NECK: Supple. HEART: Showed normal first and second heart sounds. No gallop, rub, or murmur. CHEST: Clear to auscultation. No crepitation or rhonchi. ABDOMEN: Distended, soft, nontender. No guarding or rigidity. No organomegaly. All hernial orifices intact. Bowel sounds normal. NEUROLOGIC: She was awake, alert, hard of hearing, but all other cranial nerves are intact. She moves all extremities without difficulty. She ambulates without assistance or assistive devices. Her intake over the last 24 hours was 1900, no output was recorded. LABORATORY DATA: As of this morning showed a serum sodium 141, potassium 4.1, chloride 107, bicarbonate 22, anion gap of 12, BUN 29, creatinine 2.9, estimated GFR was 15 mL per minute, her glucose 139, calcium was 8.5. Her most recent white cell count was 6900, hemoglobin 9.7, hematocrit 29, MCV 94, and platelet count of 160,000. Unfortunately, no urine or blood cultures were done. Her chest x-ray showed that the patient has slightly improved, but persistent left mid lung zone heterogenous airspace opacities. DISCHARGE MEDICATIONS: She was discharged home to continue on azithromycin 250 mg once a day for 5 days, cefdinir 300 mg twice a day for 5 days, hydralazine 100 mg 3 times a day, metoprolol tartrate 50 mg twice a day. She should continue also on aspirin 81 mg once a day, clopidogrel for Plavix 75 mg once a day, gabapentin 300 mg twice a day. She is on Lantus insulin 25 units at bedtime and simvastatin 20 mg at bedtime. I have discontinued her fluconazole, lisinopril, meloxicam, and sulfamethoxazole/trimethoprim. FINAL DISCHARGE DIAGNOSES: Community-acquired pneumonia, resolving. The patient is afebrile. Her white cell count is down from 12,800 to 6900. [id number] kidney injury, improving, and accelerated hypertension, improved. Other medical problems include diabetic neuropathy, diabetic nephropathy, type 2 diabetes mellitus, and degenerative osteoarthritis. VINCE PAIGE MD DR: DEEJAY/dilia JOB#: [id number] / [id number]
[2019-07-21] MEDS ORDERED: CEFDINIR 300 MG CAPSULE PO SCH (09:00)
== END 2019-07-20 12:16 | disposition home or self-care (01) | DRG 682 ==
LOC: ER 10:35 → 1 SOUTH 14:30
PROVIDERS: ADMIT Hospitalist; ATTEND Internal Medicine
DX: N17.9 Acute kidney failure, unspecified (principal); J18.9 Pneumonia, unspecified organism; K52.9 Noninfective gastroenteritis and colitis, unspecified; E86.0 Dehydration; E11.40 Type 2 diabetes mellitus with diabetic neuropathy, unspecified; I12.9 Hypertensive chronic kidney disease with stage 1 through stage 4 chronic kidney disease, or unspecified chronic kidney disease; M19.90 Unspecified osteoarthritis, unspecified site; E11.22 Type 2 diabetes mellitus with diabetic chronic kidney disease; I25.10 Atherosclerotic heart disease of native coronary artery without angina pectoris; F32.9 Major depressive disorder, single episode, unspecified; N18.4 Chronic kidney disease, stage 4 (severe); Z66 Do not resuscitate; Z87.440 Personal history of urinary (tract) infections; Z90.49 Acquired absence of other specified parts of digestive tract; Z91.041 Radiographic dye allergy status
CPT/HCPCS: 36415; 71045; 80048; 80053; 81001; 82947; 85025; 85027; 96361; 96365; 96368; 96375; J0456; J0696; J1815; J2405; J7030; J7050; 99285-25

== ENCOUNTER 2019-07-28 19:13 | Inpatient (IN) | payer MEDICARE, OTHER ==
[~2019-07-28] VITALS: Ht 154.9 cm; Wt 71.2 kg
[~2019-07-28 19:13] MED LIST changes: +AZIT250T PO; +CEFD300C PO; +HYDR100T24 PO; +METO50TA6 PO
[2019-07-28 19:48] LABS: BASO # 0.1 x10^3/uL (0.0-0.2); BASO % 1 % (0-3); EOS # 0.2 x10^3/uL (0.0-0.7); EOS % 3 % (0-3); HEMATOCRIT 30.1 % (36.0-47.0); HEMOGLOBIN 9.6 g/dL (12.0-15.5); LYMPH # 1.6 x10^3/uL (1.0-4.8); LYMPH % 24 % (24-48); MEAN CORPUSCULAR HEMOGLOBIN 31 pg (25-35); MEAN CORPUSCULAR HGB CONC 32 g/dL (31-37); MEAN CORPUSCULAR VOLUME 96 fL (79-100); MONO # 0.5 x10^3/uL (0.0-1.1); MONO % 8 % (0-9); NEUT # 4.3 x10^3uL (1.8-7.7); NEUT % 64 % (31-73); PLATELET COUNT 226 x10^3/uL (140-400); RED BLOOD COUNT 3.13 x10^6/uL (3.50-5.40); WHITE BLOOD COUNT 6.7 x10^3/uL (4.0-11.0)
[2019-07-28 20:05] LABS: ALBUMIN 3.5 g/dL (3.4-5.0); ALBUMIN/GLOBULIN RATIO 0.9 (1.0-1.7); CALCIUM 8.9 mg/dL (8.5-10.1); CREATININE 3.5 mg/dL (0.6-1.0); GFR 12.4; TOTAL BILIRUBIN 0.6 mg/dL (0.2-1.0); TOTAL PROTEIN 7.3 g/dL (6.4-8.2)
--- NOTE | 2019-07-28 20:41 | RAD ---
Examination: PORTABLE CHEST 1V History: Shortness of breath Comparison/Correlation: 07/16/2019 portable chest x-ray exam Findings: Portable upright frontal view chest was obtained. Heart size is within upper limits of normal considering technique. Pulmonary vasculature is slightly congested. No pneumothorax. Small pleural effusions are suggested.. Osteopenia noted. Impression: Slight pulmonary vasculature congestion and pleural effusions. No definite infiltrate. Electronically signed by: Peng Cutler MD (07/28/2019 8:39 PM) [facility]
[2019-07-28 20:42] LABS: BACTERIA,URINE 0 /HPF (0-FEW); BILIRUBIN,URINE NEG (NEG); CLARITY,URINE CLEAR; COLOR,URINE STRAW; GLUCOSE,URINE 500 mg/dL (NEG); NITRITE,URINE NEG (NEG); RBC,URINE 0 /HPF (0-2); SQUAMOUS EPITHELIAL CELL,UR OCC /LPF; UROBILINOGEN,URINE 0.2 mg/dL (0.2 mg/dL); WBC,URINE OCC /HPF (0-4)
--- NOTE | 2019-07-28 20:56 | PHYS DOC ---
Past History Past Medical History: ND Past Surgical History: Other Additional Past Surgical Histo: stents Smoking: Non-smoker Alcohol Use: None Drug Use: None Adult General Chief Complaint Chief Complaint: SHORTNESS OF BREATH [facility] HPI Patient is an 84-year-old female who presents with complaint of worsening shortness of breath. Patient had recently been admitted into the hospital for pneumonia and acute kidney injury. Family reports that when patient went home they did not feel that patient was stable for discharge. Since being discharged home, patient has not been able to walk without significant assistance from family. They indicate that they are concerned that patient is going to fall. Patient lives with one of her daughters who is currently undergoing chemotherapy. Patient states that her shortness of breath is gotten worse despite being on oxygen.[] Review of Systems Review of Systems Constitutional: Denies fever or chills [] Respiratory: Positive cough and shortness of breath [] Cardiovascular: No additional information not addressed in HPI [] GI: Denies abdominal pain, nausea, vomiting or diarrhea [] Musculoskeletal: Admits to chronic back and leg pain [] Neurologic: Denies headache. Reports severe generalized weakness. [] All other systems were reviewed and found to be within normal limits, except as documented in this note. Allergies Allergies Allergies Coded Allergies Type Severity Reaction Last Updated Verified iodine Allergy Intermediate 09/13/14 Yes Physical Exam Physical Exam Constitutional: Well developed, well nourished, no acute distress, non-toxic appearance. [] HENT: Normocephalic, atraumatic, bilateral external ears normal, oropharynx moist, no oral exudates, nose normal. [] Eyes: PERRLA, EOMI, conjunctiva normal, no discharge. [] Neck: Normal range of motion, no tenderness, supple, no stridor. [] Cardiovascular:Heart rate regular rhythm, no murmur [] Lungs & Thorax: Bilateral breath sounds clear to auscultation [] Abdomen: Bowel sounds normal, soft, no tenderness, no masses, no pulsatile masses. [] Skin: Warm, dry, no erythema, no rash. [] Back: No tenderness, no CVA tenderness. [] Extremities: No tenderness, no cyanosis, no clubbing, ROM intact, no edema. [] Neurologic: Alert and oriented X 3, normal motor function, normal sensory function, no focal deficits noted. [] Psychologic: Affect normal, judgement normal, mood normal. [] Current Patient Data Vital Signs Vital Signs Date Time Temp Pulse Resp B/P (MAP) Pulse Ox O2 Delivery O2 Flow Rate FiO2 07/28/19 19:31 98.2 61 20 93 Nasal Cannula 2.0 Lab Results Laboratory Tests Test 07/28/19 19:20 07/28/19 20:10 White Blood Count 6.7 x10^3/uL (4.0-11.0) Red Blood Count 3.13 x10^6/uL (3.50-5.40) L Hemoglobin 9.6 g/dL (12.0-15.5) L Hematocrit 30.1 % (36.0-47.0) L Mean Corpuscular Volume 96 fL (79-100) Mean Corpuscular Hemoglobin 31 pg (25-35) Mean Corpuscular Hemoglobin Concent 32 g/dL (31-37) Red Cell Distribution Width 14.0 % (11.5-14.5) Platelet Count 226 x10^3/uL (140-400) Neutrophils (%) (Auto) 64 % (31-73) Lymphocytes (%) (Auto) 24 % (24-48) Monocytes (%) (Auto) 8 % (0-9) Eosinophils (%) (Auto) 3 % (0-3) Basophils (%) (Auto) 1 % (0-3) Neutrophils # (Auto) 4.3 x10^3uL (1.8-7.7) Lymphocytes # (Auto) 1.6 x10^3/uL (1.0-4.8) Monocytes # (Auto) 0.5 x10^3/uL (0.0-1.1) Eosinophils # (Auto) 0.2 x10^3/uL (0.0-0.7) Basophils # (Auto) 0.1 x10^3/uL (0.0-0.2) Prothrombin Time 10.2 SEC (9.4-11.4) Prothrombin Time INR 1.0 (0.9-1.1) Sodium Level 140 mmol/L (136-145) Potassium Level 5.0 mmol/L (3.5-5.1) Chloride Level 107 mmol/L (98-107) Carbon Dioxide Level 22 mmol/L (21-32) Anion Gap 11 (6-14) Blood Urea Nitrogen 51 mg/dL (7-20) H Creatinine 3.5 mg/dL (0.6-1.0) H Estimated GFR (Cockcroft-Gault) 12.4 BUN/Creatinine Ratio 15 (6-20) Glucose Level 173 mg/dL (70-99) H Lactic Acid Level 0.4 mmol/L (0.4-2.0) Calcium Level 8.9 mg/dL (8.5-10.1) Total Bilirubin 0.6 mg/dL (0.2-1.0) Aspartate Amino Transferase (AST) 60 U/L (15-37) H Alanine Aminotransferase (ALT) 67 U/L (14-59) H Alkaline Phosphatase 88 U/L (46-116) Troponin I Quantitative < 0.017 ng/mL (0-0.055) Total Protein 7.3 g/dL (6.4-8.2) Albumin 3.5 g/dL (3.4-5.0) Albumin/Globulin Ratio 0.9 (1.0-1.7) L Urine Collection Type Unknown Urine Color Straw Urine Clarity Clear Urine pH 5.5 Urine Specific Hickman 1.010 Urine Protein 100 mg/dl (NEG-TRACE) Urine Glucose (UA) 500 mg/dL (NEG) Urine Ketones (Stick) Neg mg/dL (NEG) Urine Blood Neg (NEG) Urine Nitrite Neg (NEG) Urine Bilirubin Neg (NEG) Urine Urobilinogen Dipstick 0.2 mg/dL (0.2 mg/dL) Urine Leukocyte Esterase Neg (NEG) Urine RBC 0 /HPF (0-2) Urine WBC Occ /HPF (0-4) Urine Squamous Epithelial Cells Occ /LPF Urine Bacteria 0 /HPF (0-FEW) EKG EKG [] Radiology/Procedures Radiology/Procedures [] Impressions: PROCEDURE: PORTABLE CHEST 1V Examination: PORTABLE CHEST 1V History: Shortness of breath Comparison/Correlation: 07/16/2019 portable chest x-ray exam Findings: Portable upright frontal view chest was obtained. Heart size is within upper limits of normal considering technique. Pulmonary vasculature is slightly congested. No pneumothorax. Small pleural effusions are suggested.. Osteopenia noted. Impression: Slight pulmonary vasculature congestion and pleural effusions. No definite infiltrate. Electronically signed by: Peng Schmitt MD (07/28/2019 8:39 PM) [facility] DICTATED AND SIGNED BY: PENG SCHMITT MD DATE: 07/28/192038 CC: JAKE WASHINGTON Jr. DO; ROGELIO CLAY ~ Course & Med Decision Making Course & Med Decision Making Pertinent Labs and Imaging studies reviewed. (See chart for details) [] Dragon Disclaimer Dragon Disclaimer This electronic medical record was generated, in whole or in part, using a voice recognition dictation system. Departure Departure: Impression: Primary Impression: Eclbj-et-[id number] kidney injury Additional Impressions: Dehydration Generalized weakness Disposition: ADMITTED INPATIENT Admitting Physician: Jay Ram Condition: IMPROVED Referrals: ROGELIO CLAY (PCP) Problem Qualifiers Primary Impression: Izfcc-qq-nintfft kidney injury Acute renal failure type: unspecified Chronic kidney disease stage: unspecified stage Qualified Codes: N17.9 - Acute kidney failure, unspecified; N18.9 - Chronic kidney disease, unspecified JAKE WASHINGTON Jr., DO Jul 28, 2019 20:56
[2019-07-28] MEDS: IV NORMAL SALINE 1,000ML 1,000 ML IV SCH (21:21)
[2019-07-28] MEDS ORDERED: MORPHINE SULFATE 2 MG/ML DISP.SYRIN. IV PRN (21:30)
[2019-07-28] MEDS ORDERED: ACETAMINOPHEN 325 MG TABLET PO PRN (21:30)
[2019-07-28] MEDS ORDERED: ONDANSETRON PF 4 MG/2 ML VIAL. IV PRN (21:30)
[2019-07-28] MEDS ORDERED: IV NORMAL SALINE 1,000ML 1,000 ML IV ONE (21:30)
[2019-07-28 22:45] VITALS: BP 219/78
[2019-07-29 05:16] VITALS: BP 172/61
[2019-07-29] MEDS: IPRATRPIUM/ALBUTEROL 0.5/2.5MG 3 ML NEBU. NEB SCH ×4 (05:47→20:20)
[2019-07-29 06:35] LABS: BASO # 0.1 x10^3/uL (0.0-0.2); BASO % 1 % (0-3); EOS # 0.1 x10^3/uL (0.0-0.7); EOS % 2 % (0-3); HEMOGLOBIN 8.7 g/dL (12.0-15.5); LYMPH # 1.5 x10^3/uL (1.0-4.8); LYMPH % 24 % (24-48); MEAN CORPUSCULAR HEMOGLOBIN 31 pg (25-35); MEAN CORPUSCULAR HGB CONC 32 g/dL (31-37); MEAN CORPUSCULAR VOLUME 96 fL (79-100); MONO # 0.5 x10^3/uL (0.0-1.1); MONO % 8 % (0-9); NEUT # 4.2 x10^3uL (1.8-7.7); NEUT % 65 % (31-73); PLATELET COUNT 194 x10^3/uL (140-400); WHITE BLOOD COUNT 6.5 x10^3/uL (4.0-11.0)
[2019-07-29 06:44] LABS: CALCIUM 8.5 mg/dL (8.5-10.1); CREATININE 3.2 mg/dL (0.6-1.0); GFR 13.8; POTASSIUM 4.7 mmol/L (3.5-5.1)
[2019-07-29] MEDS: IV NORMAL SALINE 1,000ML 1,000 ML IV SCH (08:49)
[2019-07-29] MEDS: METOPROLOL TART IMMED RELEASE 50 MG TABLET PO SCH ×2 (08:49→21:47)
[2019-07-29] MEDS: GABAPENTIN 300 MG CAPSULE. PO SCH ×2 (08:50→21:49)
[2019-07-29] MEDS: CLOPIDOGREL BISULFATE 75 MG TABLET PO SCH (08:50)
[2019-07-29] MEDS ORDERED: CEFDINIR 300 MG CAPSULE PO SCH (09:00)
[2019-07-29 11:13] VITALS: BP 156/67
[2019-07-29] MEDS ORDERED: DEXTROSE 50% 25 GM / 50ML DISP.SYRIN. IV PRN (11:45)
[2019-07-29] MEDS: INSULIN LISPRO 300 UNITS/3 ML VIAL. SQ SCH ×2 (12:29→16:53)
[2019-07-29] MEDS ORDERED: FUROSEMIDE 40 MG/4 ML VIAL IVP ONE (14:30)
--- NOTE | 2019-07-29 14:47 | HP ---
ADMIT DATE: 07/28/2019 HISTORY OF PRESENT ILLNESS: The patient is an 84-year-old female patient who was apparently discharged about a week ago, specifically on 07/20/2019. At that time, she was admitted with community-acquired pneumonia, acute on chronic kidney injury, accelerated hypertension. She was treated at that time with cefdinir and azithromycin together with all her other medications and according to her family she continued to be weak and yesterday she was extremely weak that she required assistance to get her out of the chair and therefore, she was brought to the Emergency Room for further evaluation and treatment. The patient herself denied any chest pain, but did complain of orthopnea, paroxysmal nocturnal dyspnea and also generalized weakness, although denied any cough, phlegm or hemoptysis. She was apparently evaluated in the Emergency Room. Her white cell count was normal. Her chemistry showed a BUN of 51, creatinine 3.5, slightly deranged liver enzyme. Her prothrombin time and INR are normal. Urinalysis was essentially unremarkable and in fact her chest x-ray showed that she has slight pulmonary vasculature congestion and pleural effusion, no definite infiltrate. She was admitted and was continued on all her medication as well as IV fluid. PAST MEDICAL HISTORY: Significant for type 2 diabetes mellitus, chronic kidney disease stage 4, diabetic nephropathy, essential hypertension, diabetic peripheral neuropathy and degenerative disk disease. ALLERGIES: SHE IS ALLERGIC TO IODINE. FAMILY HISTORY: Noncontributory. SOCIAL HISTORY: She lives at home with her daughter. She does not smoke, drink alcohol or use any recreational drugs. REVIEW OF SYSTEMS: As per history of present illness. MEDICATIONS: She is currently on following medications: She is on Plavix 75 mg once a day, simvastatin 20 mg once a day, hydralazine 100 mg 3 times a day, metoprolol tartrate 50 mg twice a day, aspirin 81 mg once a day, gabapentin 300 mg twice a day. She is on NovoLog insulin before meals and Lantus insulin 25 units subcutaneously at bedtime. PHYSICAL EXAMINATION: GENERAL: On arrival to the Emergency Room, the patient was slightly tachypneic, pale, but no jaundice, cyanosis or thyromegaly. No jugular venous distention. No limb edema. VITAL SIGNS: Her heart rate was 61, blood pressure 209/98, temperature was 98, respiratory rate was 22 and oxygen saturation was 93%. HEAD, EYES, EARS, NOSE AND THROAT: Showed normocephalic, atraumatic. NECK: Supple. HEART: Showed normal first and second heart sounds with no gallop or murmur. CHEST: Shows central trachea, equal bilateral expansion, air entry, vesicular sounds with bilateral basal crepitation. No rhonchi. ABDOMEN: Distended, soft, nontender. NEUROLOGIC: She is awake, alert, responding appropriately. All cranial nerves intact. EXTREMITIES: She moves all extremities without difficulty. According to her daughter she uses a walker. LABORATORY DATA: On admission showed a white cell count 6700, hemoglobin 9.6, hematocrit 30, MCV 96, platelet count 226,000. Her chemistry showed a serum sodium 141, potassium 5, chloride 107, bicarbonate 22, anion gap of 11, BUN 51, creatinine 3.5, estimated GFR was 12.4 mL per minute. Her glucose 173, calcium was 8.9. Total bilirubin, AST, ALT, alkaline phosphatase were normal. Total protein was 7.3, albumin was 3.5. Her prothrombin time was 10.2, INR of 1. Urinalysis showed the urine was yellow, clear with a pH of 5.5, specific gravity of 1.010. The urine showed large amount of protein, large amount of glucose, negative for ketones, blood, nitrite and leukocyte esterase. There are no rbc's, no wbc's, and no bacteria. Her nasal screen for MRSA by PCR was negative. Her chest x-ray showed that portable upright frontal view chest was obtained. The heart size is within upper limit of normal, considering technique. Pulmonary vasculature is slightly congested. No pneumothorax. Small pleural effusions are suggested. Osteopenia is noted. ASSESSMENT AND PLAN: The patient was actually admitted to the Emergency Room and was continued on all her medication including insulin sliding scale before meals and Lantus insulin 25 units at bedtime. VINCE PAIGE MD DR: DEEJAY/dilia JOB#: [id number] / [id number]
[2019-07-29] MEDS ORDERED: NITROGLYCERIN OINT 1 GM PACKET. ONE (14:52)
[2019-07-29] MEDS: NITROGLYCERIN OINT 1 GM PACKET. TP SCH (14:56)
[2019-07-29 15:14] VITALS: BP 169/65
[2019-07-29 19:59] VITALS: BP 179/71
[2019-07-29] MEDS: INSULIN GLARGINE SYRINGE. SQ SCH (21:00)
[2019-07-29] MEDS: ASPIRIN ENTERIC COATED 81 MG TABLET.DR. PO SCH (21:46)
[2019-07-29] MEDS: SIMVASTATIN 20 MG TABLET PO SCH (21:47)
[2019-07-29 23:08] VITALS: BP 181/69
--- NOTE | 2019-07-29 23:15 | PN ---
DATE: 07/29/2019 SUBJECTIVE: The patient was admitted yesterday with generalized weakness, dyspnea, orthopnea, paroxysmal nocturnal dyspnea. Her lab work showed that her kidney function is worsening. Her GFR is only 12.4. Chest x-ray clinically seemed to be fluid overloaded and probably has almost end-stage renal disease. I have discontinued her IV fluids, start her on IV Lasix and some nitroglycerin and nitro paste to offload her heart. I ordered echocardiogram and a renal ultrasound as well as to scan her bladder to rule out any obstruction, did consult Dr. Evans to evaluate her for probably acute on chronic diastolic congestive heart failure. I had a lengthy discussion with the family that she probably has end-stage renal disease and that she would require hemodialysis. It is something that the patient is adamantly refusing so far. PHYSICAL EXAMINATION: GENERAL: When I examined her this afternoon, she was resting, propped up in bed, clearly tachypneic, pale, but no jaundice, cyanosis or thyromegaly. No jugular venous distention. No lower limb edema. VITAL SIGNS: Her heart rate was 59, blood pressure was 115/86, temperature was 98.2, respiratory rate 20, and oxygen saturation was 98% actually on room air. HEAD, EYES, EARS, NOSE AND THROAT: Showed normocephalic, atraumatic. NECK: Supple. HEART: Showed normal first and second heart sounds with no gallop or murmur. CHEST: Shows central trachea, equal bilateral expansion, air entry, vesicular sounds with bilateral basal crepitation. I could not really appreciate any rhonchi. ABDOMEN: Distended, soft, nontender. NEUROLOGIC: She is awake, alert. Did complain of diplopia and also has what seems to be parkinsonian tremor; however, all her cranial nerves are intact. She moves extremities without difficulty. She ambulates with a walker, although she has been very weak recently. Her intake over the last 24 hours was 166, no output was recorded. LABORATORY DATA: Showed a white cell count 6500, hemoglobin 8.7, hematocrit 27, MCV 96, and platelet count of 194,000. Her chemistry showed a serum sodium 140, potassium 5, chloride 107, bicarbonate 22, anion gap of 11, BUN 51, creatinine 3.5. Her estimated GFR was 12.4, glucose 173, calcium was 8.9. Total bilirubin, AST, ALT are normal. A really waited alkaline phosphatase is normal. Her total protein was 7.3, albumin was 3.5. Her urinalysis showed that she had large amount of protein and glucose, negative for ketones, blood, nitrite, leukocyte esterase, no rbc's, no wbc's, and no bacteria. ASSESSMENT: 1. Acute on chronic diastolic congestive heart failure. 2. Accelerated hypertension. 3. Probably end-stage renal disease. PLAN: My plan is to discontinue IV fluid. I gave her Lasix 40 mg IV and also nitro paste half an inch to the chest wall every 6 hours. We will continue with her other medications including insulin sliding scale and Lantus insulin, metoprolol as well as hydralazine. She likely will require hemodialysis. VINCE PAIGE MD DR: DEEJAY/dilia JOB#: [id number] / [id number]
[2019-07-30] VITALS (12 sets, daily range): BP systolic 114–206; BP diastolic 60–79
[2019-07-30] MEDS: NITROGLYCERIN OINT 1 GM PACKET. TP SCH ×5 (00:35→23:53)
[2019-07-30] MEDS: IPRATRPIUM/ALBUTEROL 0.5/2.5MG 3 ML NEBU. NEB SCH (04:50)
[2019-07-30 07:10] LABS: CALCIUM 8.9 mg/dL (8.5-10.1); CREATININE 3.2 mg/dL (0.6-1.0); GFR 13.8; POTASSIUM 4.5 mmol/L (3.5-5.1)
[2019-07-30] MEDS: INSULIN LISPRO 300 UNITS/3 ML VIAL. SQ SCH ×3 (08:49→17:10)
--- NOTE | 2019-07-30 09:17 | PDOC2 ---
NAHUM STEPHEN FARM ADVISER 07/30/19 0917: CARDIAC CONSULT DATE OF CONSULT Date Of Consult DATE: 07/30/19 TIME: 09:12 REASON FOR CONSULT Reason for Consult CHF REFERRING PHYSICIAN Referring Physician Dr. Ram SOURCE Source: Chart review, Patient HPI History of Present Illness This is an 84 yo female who presented secondary to shortness of breath and weakness. Was treated at [facility] last week for CAP. Patient reports she has been weak since that point. No chest pain, palpitations, dizziness, diaphoresis, or nausea/vomiting. Does have a history of CAD s/p PCI/stent about [address] [facility]. Does not follow with business advisor. Received Lasix in ED and reports improvement in shortness of breath. PAST MEDICAL HISTORY Cardiovascular: CAD, HTN, hyperipidemia Pulmonary: Pneumonia CENTRAL NERVOUS SYSTEM: Periperal neuropathy Psych: Depression Musculoskeletal: Osteoarthritis, Other (DDD) Renal/: Chronic renal insuff Endocrine: Diabetes PAST SURGICAL HISTORY Past Surgical History: Hysterectomy FAMILY HISTORY Family History: Hypertension SOCIAL HISTORY Smoke: No ALCOHOL: occassional Drugs: None Lives: with Family CURRENT MEDICATIONS Current Medications Current Medications Sodium Chloride 1,000 ml @ 75 mls/hr 1X ONCE IV ; Start 07/28/19 at 21:30; Stop 07/29/19 at 10:49; Status DC Ondansetron HCl (Zofran) 4 mg PRN Q4HRS PRN IV NAUSEA/VOMITING; Start 07/28/19 at 21:30; Stop 07/29/19 at 21:29; Status DC Morphine Sulfate (Morphine 2mg Syringe) 2 mg PRN Q2HR PRN IV PAIN; Start 07/28/19 at 21:30; Stop 07/29/19 at 21:29; Status DC Sodium Chloride 1,000 ml @ 75 mls/hr [id number] IV Last administered on 07/29/19at 08:50; Start 07/28/19 at 21:21; Stop 07/29/19 at 21:20; Status DC Acetaminophen (Tylenol) 650 mg PRN Q4HRS PRN PO FEVER; Start 07/28/19 at 21:30; Stop 07/29/19 at 21:29; Status DC Albuterol/ Ipratropium (Duoneb) 3 ml RTQID NEB Last administered on 07/30/19at 04:50; Start 07/29/19 at 08:00; Stop 07/30/19 at 08:00; Status DC Aspirin (Aspirin Enteric Coated) 81 mg HS PO Last administered on 07/29/19at 21:50; Start 07/29/19 at 21:00 Cefdinir (Omnicef) 300 mg BID PO ; Start 07/29/19 at 09:00; Stop 07/29/19 at 10:28; Status DC Clopidogrel Bisulfate (Plavix) 75 mg DAILY PO Last administered on 07/29/19at 08:50; Start 07/29/19 at 09:00 Gabapentin (Neurontin) 300 mg BID PO Last administered on 07/29/19at 21:50; Start 07/29/19 at 09:00 Insulin Glargine (Lantus Syringe) 25 unit HS SQ ; Start 07/29/19 at 21:00 Metoprolol Tartrate (Lopressor) 50 mg BID PO Last administered on 07/29/19at 21:50; Start 07/29/19 at 09:00 Simvastatin (Zocor) 20 mg HS PO Last administered on 07/29/19at 21:50; Start 07/29/19 at 21:00 Hydralazine HCl (Apresoline) 100 mg TID PO Last administered on 07/29/19at 21:50; Start 07/29/19 at 09:00 Insulin Human Lispro (HumaLOG) 0-7 UNITS TIDWMEALS SQ Last administered on 07/29/19at 12:29; Start 07/29/19 at 12:00 Dextrose (Dextrose 50%-Water Syringe) 12.5 gm PRN Q15MIN PRN IV SEE COMMENTS; Start 07/29/19 at 11:45 Furosemide (Lasix) 40 mg 1X ONCE IVP Last administered on 07/29/19at 14:57; Start 07/29/19 at 14:30; Stop 07/29/19 at 14:45; Status DC Furosemide (Lasix) 40 mg DAILY IVP ; Start 07/30/19 at 09:00 Nitroglycerin (Nitro-Bid Oint) 0.5 inch Q6HRS TP Last administered on 07/30/19at 05:27; Start 07/29/19 at 18:00 Nitroglycerin (Nitro-Bid Oint) 1 inch STK-MED ONCE .ROUTE ; Start 07/29/19 at 14:52; Stop 07/29/19 at 14:53; Status DC Active Scripts Active Zithromax (Azithromycin) 250 Mg Tablet 250 Mg PO DAILY 5 Days Cefdinir 300 Mg Capsule 1 Cap PO BID 5 Days Hydralazine Hcl 100 Mg Tablet 1 Tab PO TID Metoprolol Tartrate 50 Mg Tablet 1 Tab PO BID 30 Days Reported Novolog (Insulin Aspart) 100 Unit/1 Ml Cartridge 1 Unit SQ Gabapentin (Gabapentin) 300 Mg Capsule 1 Cap PO BID last dose next dose Lantus (Insulin Glargine,Hum.rec.anlog) 100 Unit/1 Ml Vial 25 Unit SQ HS last dose next dose Aspir 81 (Aspirin) 81 Mg Tablet.dr 81 Mg PO HS last dose next dose Simvastatin 20 Mg Tablet 20 Mg PO HS last dose next dose Clopidogrel (Clopidogrel Bisulfate) 75 Mg Tablet 75 Mg PO DAILY last dose next dose ALLERGIES Allergies: Coded Allergies: iodine (Verified Allergy, Intermediate, 09/13/14) ROS Review of Systems 14 point ROS conducted with pertinent positives noted above in HPI. PHYSICAL EXAM General: Alert, Oriented X3, Cooperative, No acute distress HEENT: Atraumatic, Mucous membr. moist/pink Lungs: Clear to auscultation, Other (diminished bases) Heart: Regular rate, Normal S1, Normal S2, Other (2/6 systolic murmur ) Extremities: No edema, Normal pulses Skin: No rashes, No breakdown Neuro: Normal speech, Sensation intact Psych/Mental Status: Mental status NL, Mood NL MUSCULOSKELETAL: Osteoarthritic changes both hands VITALS Vital Signs Vital Signs Date Time Temp Pulse Resp B/P (MAP) Pulse Ox O2 Delivery O2 Flow Rate FiO2 07/30/19 05:31 97.8 60 20 185/65 (105) 93 Nasal Cannula 2.0 LABS LABS Laboratory Tests Test 07/28/19 19:20 07/28/19 20:10 07/29/19 03:00 07/29/19 06:21 White Blood Count 6.7 x10^3/uL (4.0-11.0) 6.5 x10^3/uL (4.0-11.0) Red Blood Count 3.13 x10^6/uL (3.50-5.40) 2.80 x10^6/uL (3.50-5.40) Hemoglobin 9.6 g/dL (12.0-15.5) 8.7 g/dL (12.0-15.5) Hematocrit 30.1 % (36.0-47.0) 27.0 % (36.0-47.0) Mean Corpuscular Volume 96 fL (79-100) 96 fL (79-100) Mean Corpuscular Hemoglobin 31 pg (25-35) 31 pg (25-35) Mean Corpuscular Hemoglobin Concent 32 g/dL (31-37) 32 g/dL (31-37) Red Cell Distribution Width 14.0 % (11.5-14.5) 14.0 % (11.5-14.5) Platelet Count 226 x10^3/uL (140-400) 194 x10^3/uL (140-400) Neutrophils (%) (Auto) 64 % (31-73) 65 % (31-73) Lymphocytes (%) (Auto) 24 % (24-48) 24 % (24-48) Monocytes (%) (Auto) 8 % (0-9) 8 % (0-9) Eosinophils (%) (Auto) 3 % (0-3) 2 % (0-3) Basophils (%) (Auto) 1 % (0-3) 1 % (0-3) Neutrophils # (Auto) 4.3 x10^3uL (1.8-7.7) 4.2 x10^3uL (1.8-7.7) Lymphocytes # (Auto) 1.6 x10^3/uL (1.0-4.8) 1.5 x10^3/uL (1.0-4.8) Monocytes # (Auto) 0.5 x10^3/uL (0.0-1.1) 0.5 x10^3/uL (0.0-1.1) Eosinophils # (Auto) 0.2 x10^3/uL (0.0-0.7) 0.1 x10^3/uL (0.0-0.7) Basophils # (Auto) 0.1 x10^3/uL (0.0-0.2) 0.1 x10^3/uL (0.0-0.2) Prothrombin Time 10.2 SEC (9.4-11.4) Prothromb Time International Ratio 1.0 (0.9-1.1) Sodium Level 140 mmol/L (136-145) 142 mmol/L (136-145) Potassium Level 5.0 mmol/L (3.5-5.1) 4.7 mmol/L (3.5-5.1) Chloride Level 107 mmol/L (98-107) 110 mmol/L (98-107) Carbon Dioxide Level 22 mmol/L (21-32) 22 mmol/L (21-32) Anion Gap 11 (6-14) 10 (6-14) Blood Urea Nitrogen 51 mg/dL (7-20) 47 mg/dL (7-20) Creatinine 3.5 mg/dL (0.6-1.0) 3.2 mg/dL (0.6-1.0) Estimated GFR (Cockcroft-Gault) 12.4 13.8 BUN/Creatinine Ratio 15 (6-20) Glucose Level 173 mg/dL (70-99) 157 mg/dL (70-99) Lactic Acid Level 0.4 mmol/L (0.4-2.0) Calcium Level 8.9 mg/dL (8.5-10.1) 8.5 mg/dL (8.5-10.1) Total Bilirubin 0.6 mg/dL (0.2-1.0) Aspartate Amino Transf (AST/SGOT) 60 U/L (15-37) Alanine Aminotransferase (ALT/SGPT) 67 U/L (14-59) Alkaline Phosphatase 88 U/L (46-116) Troponin I Quantitative < 0.017 ng/mL (0-0.055) Total Protein 7.3 g/dL (6.4-8.2) Albumin 3.5 g/dL (3.4-5.0) Albumin/Globulin Ratio 0.9 (1.0-1.7) Urine Collection Type Unknown Urine Color Straw Urine Clarity Clear Urine pH 5.5 Urine Specific [place] 1.010 Urine Protein 100 mg/dl (NEG-TRACE) Urine Glucose (UA) 500 mg/dL (NEG) Urine Ketones (Stick) Neg mg/dL (NEG) Urine Blood Neg (NEG) Urine Nitrite Neg (NEG) Urine Bilirubin Neg (NEG) Urine Urobilinogen Dipstick 0.2 mg/dL (0.2 mg/dL) Urine Leukocyte Esterase Neg (NEG) Urine RBC 0 /HPF (0-2) Urine WBC Occ /HPF (0-4) Urine Squamous Epithelial Cells Occ /LPF Urine Bacteria 0 /HPF (0-FEW) Nasal Screen MRSA (PCR) Negative (Negative) Test 07/29/19 07:48 07/29/19 11:31 07/29/19 16:39 07/29/19 21:48 Glucose (Fingerstick) 137 mg/dL (70-99) 193 mg/dL (70-99) 140 mg/dL (70-99) 178 mg/dL (70-99) Test 07/30/19 06:35 07/30/19 07:27 Sodium Level 143 mmol/L (136-145) Potassium Level 4.5 mmol/L (3.5-5.1) Chloride Level 110 mmol/L (98-107) Carbon Dioxide Level 21 mmol/L (21-32) Anion Gap 12 (6-14) Blood Urea Nitrogen 45 mg/dL (7-20) Creatinine 3.2 mg/dL (0.6-1.0) Estimated GFR (Cockcroft-Gault) 13.8 Glucose Level 178 mg/dL (70-99) Calcium Level 8.9 mg/dL (8.5-10.1) CU-Mfw-H-Type Natriuretic Peptide 4077 pg/mL (0-449) Glucose (Fingerstick) 150 mg/dL (70-99) ECHOCARDIOGRAM Echocardiogram <Conclusion> The left ventricle is normal size. The left ventricular systolic function is normal and the ejection fraction is within normal range. The Ejection Fraction is 55-60%. The interatrial septum is intact with no evidence for an atrial septal defect or patent foramen ovale as noted on 2-D or Doppler imaging. Injection of bubbles documented no interatrial shunt. There is no significant aortic valvular stenosis. Doppler and Color Flow revealed no significant aortic regurgitation. Doppler and Color Flow revealed trace to mild mitral regurgitation. Doppler and Color Flow revealed mild tricuspid regurgitation. The PA pressure was estimated at 45 mmHg. Doppler and Color Flow revealed mild to moderate pulmonic valvular regurgitat ion. There is no evidence of significant pericardial effusion. DATE: 10/01/15 1303 STRESS TEST Stress Test Conclusion 1. No EKG evidence of stress-induced ischemia. 2. Nuclear imaging shows no reversible ischemia. 3. Nuclear imaging shows mild fixed thinning of the lateral wall most likely secondary to a technical artifact. 4. Normal left ventricular systolic function with an ejection fraction of 68%. 5. Low risk Lexiscan nuclear stress test. DATE: 10/04/15 1451 ASSESSMENT/PLAN Assessment/Plan 1. Acute probable diastolic HF; CXR with vascular congestion. Received IV Lasix in ED. Much better compensated 2. CAD s/p PCI/stent about 10 years ago. No primary business advisor 3. Hypertension; controlled 4. Hyperlipidemia; statin 5. USHA on CKD 6. Anemia 7. Weakness, recently treated for CAP Recommendations Echo to assess LV systolic function No further aggressive diuresis given renal disease ASA Lipids Secondary prevention Supportive care PT/OT JAY JUAN MD 07/30/19 1721: CARDIAC CONSULT ASSESSMENT/PLAN Assessment/Plan Patient seen and examined Probable diastolic heart failure. Chest x-ray shows congestion. Improved with diuresis. We'll check an echocardiogram. History of coronary artery disease with previous stenting. No chest pain. Continue medical treatment. Echocardiogram as above. HTN. Controlled on present medications. Lipidemia. Continue statin treatment. Possible USHA. Cautious diuresis. Monitoring lab. Weakness. Recent treatment for pneumonia. Renal function as above. Thank you for allowing us to participate in the care of your patient. NAHUM STEPHEN APRN Jul 30, 2019 09:17 JAY JUAN MD Jul 30, 2019 17:21
--- NOTE | 2019-07-30 09:29 | RAD ---
CLINICAL HISTORY: impaired kidney function to R/O Obstruction COMPARISON: None available. TECHNIQUE: Ultrasound examination of the bilateral kidneys and urinary bladder was performed. FINDINGS: The right kidney measures 9 cm in bipolar length. Mild renal cortical thinning. Renal echogenicity is normal. There is no evidence for hydronephrosis, shadowing renal calculus. An exophytic 2 cm right renal cystic lesion is seen. The left kidney measures 8.5 cm in bipolar length. Mild thinning of the left renal cortex.. Renal echogenicity is normal. There is no evidence for hydronephrosis, shadowing renal calculus. A 1.4 cm hypoechoic, likely cystic lesion is seen within the left kidney Bladder is not well seen. IMPRESSION: Mild atrophy of the kidneys bilaterally without evidence for hydronephrosis. Bilateral renal cystic lesions are seen. Electronically signed by: Bobo Baker MD (07/30/2019 9:26 AM) [facility]
[2019-07-30] MEDS: CLOPIDOGREL BISULFATE 75 MG TABLET PO SCH (09:51)
[2019-07-30] MEDS: GABAPENTIN 300 MG CAPSULE. PO SCH ×2 (09:52→20:28)
[2019-07-30] MEDS: FUROSEMIDE 40 MG/4 ML VIAL IVP SCH (09:53)
[2019-07-30] MEDS: METOPROLOL TART IMMED RELEASE 50 MG TABLET PO SCH ×2 (10:00→20:28)
[2019-07-30] MEDS ORDERED: PRIMIDONE 50 MG TABLET PO ONE (11:30)
[2019-07-30] MEDS ORDERED: cloNIDine TTS-3 1 PATCH PATCH TD SCH (12:30)
--- NOTE | 2019-07-30 16:30 | CARD ---
MR#: [id number] Date of Study: 07/30/2019 Ordering Physician: VINCE PAIGE, Referring Physician: VINCE PAIGE Tech: Ev Nicole RDCS APPROVED REPORT EXAM: Two-dimensional and M-mode echocardiogram with Doppler and color Doppler. Other Information Quality : Good INDICATION LV Function:Systolic 2D DIMENSIONS RVDd2.5 (2.9-3.5cm)Left Atrium(2D)3.5 (1.6-4.0cm) IVSd1.0 (0.7-1.1cm)Aortic Root(2D)2.3 (2.0-3.7cm) LVDd4.5 (3.9-5.9cm)PWd1.0 (0.7-1.1cm) LVDs3.1 (2.5-4.0cm)FS (%) 31.3 % SV53.5 mlLVEF(%)59.4 (>50%) Aortic Valve AoV Peak Augustus.151.6cm/sAoV VTI35.0cm AO Peak GR.9.2mmHgAO Mean GR.5mmHg VICKI (VTI)1.79cm2 Mitral Valve MV E Puncymfv584.5cm/sMV DECEL SXPY954nw MV A Jkwovjnq265.2cm/sE/A Ratio1.1 Tricuspid Valve TR P. Jsxuadtw767ro/sRAP [id number] TR Peak Gr.38ftFyJASD24hoEp LEFT VENTRICLE The left ventricle is normal size. There is normal left ventricular wall thickness. The left ventricu lar systolic function is normal and the ejection fraction is within normal range. The Ejection Fracti on is 55-60%. There is normal LV segmental wall motion. Transmitral Doppler flow pattern is Grade I-a bnormal relaxation pattern. RIGHT VENTRICLE The right ventricle is normal size. The right ventricular systolic function is normal. ATRIA The left atrium size is normal. The right atrium size is normal. The interatrial septum is intact wit h no evidence for an atrial septal defect or patent foramen ovale as noted on 2-D or Doppler imaging. AORTIC VALVE The aortic valve is calcified but opens well. Doppler and Color Flow revealed no significant aortic r egurgitation. There is no significant aortic valvular stenosis. MITRAL VALVE The mitral valve is calcified but opens well. Mitral annular calcification is mild. There is no evide nce of mitral valve prolapse. There is no mitral valve stenosis. Doppler and Color-flow revealed mild mitral regurgitation. TRICUSPID VALVE The tricuspid valve is normal in structure and function. Doppler and Color Flow revealed mild tricusp id regurgitation. The PA pressure was estimated at 42 mmHg. There is no tricuspid valve stenosis. PULMONIC VALVE The pulmonic valve is not well visualized. Doppler and Color Flow revealed mild pulmonic valvular reg urgitation. There is no pulmonic valvular stenosis. GREAT VESSELS The aortic root is normal in size. The ascending aorta is normal in size. The IVC is normal in size a nd collapses >50% with inspiration. PERICARDIAL EFFUSION There is a trace pericardial effusion with no hemodynamic significance. Critical Notification Critical Value: No <Conclusion> The left ventricle is normal size. The left ventricular systolic function is normal and the ejection fraction is within normal range. The Ejection Fraction is 55-60%. There is no significant aortic valvular stenosis. Doppler and Color Flow revealed no significant aortic regurgitation. Doppler and Color-flow revealed mild mitral regurgitation. Doppler and Color Flow revealed mild tricuspid regurgitation. The PA pressure was estimated at 42 mmHg. There is a trace pericardial effusion with no hemodynamic significance. Signed by : Karlo Gardner MD Electronically Approved : 07/30/2019 16:29:53
[2019-07-30] MEDS: ASPIRIN ENTERIC COATED 81 MG TABLET.DR. PO SCH (20:28)
[2019-07-30] MEDS: SIMVASTATIN 20 MG TABLET PO SCH (20:28)
[2019-07-30] MEDS: INSULIN GLARGINE SYRINGE. SQ SCH (20:32)
[2019-07-31] MEDS: NITROGLYCERIN OINT 1 GM PACKET. TP SCH (04:51)
[2019-07-31 05:00] VITALS: BP 127/62
--- NOTE | 2019-07-31 06:03 | PN ---
DATE: 07/30/2019 SUBJECTIVE: The patient is sitting comfortably in her chair, in no apparent distress. She is definitely more awake, alert, said that she slept very well. She has been up and about and denied any shortness of breath. We did treat her with IV Lasix twice and she apparently did very well. PHYSICAL EXAMINATION: GENERAL: When I examined her, she looked pale. No jaundice, cyanosis or thyromegaly. No jugular venous distention. No lower limb edema. VITAL SIGNS: Her heart rate was 64, blood pressure was 118/73, temperature was 97.3, respiratory rate was 20, and oxygen saturation was 95% on room air. HEAD, EYES, EARS, NOSE AND THROAT: Normocephalic, atraumatic. NECK: Supple. HEART: Showed normal first and second heart sounds. No gallop, rub or murmur. CHEST: Clear to auscultation. No crepitation or rhonchi. Chest shows central trachea, equal bilateral expansion, air entry, ____ bilateral basal crepitation much improved than yesterday. I could not appreciate any rhonchi. ABDOMEN: Distended, soft, nontender. No guarding or rigidity. No organomegaly. All hernial orifice intact. Bowel sounds normal. NEUROLOGIC: She is awake, alert, responding appropriately. All cranial nerves intact. She moves extremities without difficulty. Her intake over the last 24 hours was 766, no output was recorded. LABORATORY DATA: As of this morning showed a serum sodium 143, potassium 4.5, chloride 110, bicarbonate 21, anion gap of 12, BUN 45, creatinine 3.2, estimated GFR was 13.8 mL per minute. Her glucose 178, calcium was 8.9. Her beta natriuretic peptide was 4077. Her white cell count was 6500, hemoglobin 9, hematocrit 27, MCV 96 and platelet count of 194,000. ASSESSMENT: 1. Acute on chronic diastolic congestive heart failure, much improved. 2. Hypertension, still poorly controlled. I will add clonidine patch TTS. 3. Coronary artery disease status post PCI with stent deployment. 4. Hyperlipidemia. 5. Anemia. PLAN: To continue with IV Lasix. Continue with hydralazine and metoprolol. I will add clonidine TTS patch to control her blood pressure. VINCE PAIGE MD DR: DEEJAY/dilia JOB#: [id number] / [id number]
[2019-07-31] MEDS: INSULIN LISPRO 300 UNITS/3 ML VIAL. SQ SCH (08:30)
[2019-07-31] MEDS: GABAPENTIN 300 MG CAPSULE. PO SCH ×2 (08:41→20:32)
[2019-07-31] MEDS: CLOPIDOGREL BISULFATE 75 MG TABLET PO SCH (08:41)
[2019-07-31] MEDS: METOPROLOL TART IMMED RELEASE 50 MG TABLET PO SCH ×2 (08:41→20:32)
[2019-07-31] MEDS: FUROSEMIDE 40 MG/4 ML VIAL IVP SCH (08:42)
[2019-07-31 11:24] LABS: CALCIUM 8.9 mg/dL (8.5-10.1); CREATININE 3.2 mg/dL (0.6-1.0); GFR 13.8
[2019-07-31] MEDS: INSULIN LISPRO 300 UNITS/3 ML INSULN.PEN. SQ SCH ×2 (12:25→17:30)
[2019-07-31 16:24] VITALS: BP 138/78
[2019-07-31 19:35] VITALS: BP 156/71
[2019-07-31] MEDS: SIMVASTATIN 20 MG TABLET PO SCH (20:32)
[2019-07-31] MEDS: ASPIRIN ENTERIC COATED 81 MG TABLET.DR. PO SCH (20:32)
[2019-07-31] MEDS: INSULIN GLARGINE SYRINGE. SQ SCH (20:34)
--- NOTE | 2019-07-31 22:33 | CONS ---
DATE OF CONSULTATION: NEUROLOGY CONSULTATION REFERRING PHYSICIAN: Dr. Ram. REASON FOR CONSULTATION: Tremor of the hands and lips. HISTORY OF PRESENT ILLNESS: This is an 84-year-old right-handed female who was admitted through Emergency Room today after she presented with generalized weakness, shortness of breath. Neuro consult was requested because the patient has had longstanding history of tremor and difficulty to feeding herself because of tremor of the hands. The symptoms have been present intermittently for approximately 1 year, but has been getting worse recently. The tremor is usually aggravated by stress and anxiety. She denies resting tremor or rigidity. The patient denies any family history of tremor. She denies visual disturbances, headaches, vertigo. She also complains of chronic lower back pain, numbness and paresthesia of the legs. She has not had any recent falls. PAST MEDICAL HISTORY: Significant for diabetes mellitus type 2, chronic kidney disease stage 4, peripheral neuropathy in the lower extremities, diabetic nephropathy, hypertension, chronic low back pain due to degenerative disk disease and diabetes mellitus type 2. SOCIAL HISTORY: The patient lives at home with her daughter. She denies smoking, alcohol drinking, or illicit drug use. FAMILY HISTORY: Mother had emphysema. Sister had a stroke and father had stroke. PAST SURGICAL HISTORY: Significant for cholecystectomy, hysterectomy, status post coronary artery disease with stent placement. CURRENT HOME MEDICATIONS: Plavix 75 mg daily, simvastatin 20 mg daily, hydralazine 100 mg 3 times daily, metoprolol 50 mg twice daily, aspirin 81 mg daily, gabapentin 300 mg twice daily and insulin NovoLog and Lantus insulin at this time. REVIEW OF SYSTEMS: A 10-point review of system was performed as mentioned above in history of present illness. PHYSICAL EXAMINATION: GENERAL: Well-developed, well-nourished female, in acute distress. VITAL SIGNS: She weighs 74 kilos, blood pressure 203/77, respiratory rate 20, pulse is 60, oxygen saturation is 95%, temperature 97.3. HEENT: Normocephalic, atraumatic, otherwise unremarkable. NECK: Supple. Negative for carotid bruit, lymphadenopathy or JVD. LUNGS: Diminished breath sounds with bilateral basal rales. ABDOMEN: Soft. Bowel sounds positive. EXTREMITIES: Negative for cyanosis, clubbing or pitting edema. NEUROLOGICAL EXAM: 1. MENTAL STATUS: The patient is alert and oriented x 3. Speech is fluent. There is no language dysfunction. The patient recalls 2/3 immediately and 1/3 after 1 and 3 minutes. Judgment and abstract thinking are fair. The patient denies hallucination or delusion. 2. CRANIAL NERVES: Visual douglass are full. The pupils are reactive to light and accommodation. The extraocular movements are intact. There is no nystagmus. There is no facial motor or sensory deficit. Hearing is intact bilaterally. The palate is elevated symmetrically. Sternocleidomastoid muscles are powerful bilaterally. The patient shrugs her shoulders symmetrically, protrudes her tongue in the midline without fasciculation or atrophy. 3. MOTOR EXAMINATION: The patient has lips tremor and postural tremor of the hands, more prominent on the right side. She was noticed to have mild kinetic ____ of both hands as well. The tone was normal. 4. SENSORY EXAMINATION: Revealed normal pinprick and light touch senses in the upper extremities and diminished pinprick and light touch senses in the distal lower extremities. 5. DEEP TENDON REFLEXES: Asymmetric and hypoactive with absent Achilles responses. 6. GAIT: The stance is steady. The patient walks a few steps in the damon without assistance. IMPRESSION: 1. 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 2. Multiple medical problems include coronary artery disease, status post stent placement, diabetes mellitus type 2, chronic kidney disease stage 4, diabetic nephropathy, hypertension, diabetic peripheral neuropathy, chronic lower back pain due to degenerative disk disease. RECOMMENDATIONS: The patient was given a small dose of primidone at 50 mg for the tremor. However, she appears to have an adverse effect on her including mental status changes and double vision. Apparently, the patient could not tolerate primidone, probably allergic to it or due to chronic kidney disease. It was decided to discontinue the primidone at this moment. If the tremor gets worse, the other alternative includes beta-pearl like propranolol if there are no contraindications to it. We will follow the patient from neurologic standpoint as needed. M Darnell STARR MD DR: JAKY/dilia JOB#: [id number] / [id number]
--- NOTE | 2019-07-31 23:07 | PN ---
DATE: 07/31/2019 SUBJECTIVE: The patient is resting, slightly propped up in bed, complaining that she is very lethargic. She is drunk after she gets started on primidone; however, she remained hemodynamically stable. Her blood pressure is much better controlled. PHYSICAL EXAMINATION: GENERAL: When I saw her this afternoon, she looked well and was resting slightly propped up in bed, in no apparent respiratory distress, somewhat pale, but no jaundice, cyanosis, or thyromegaly. No jugular venous distension. No lower limb edema. VITAL SIGNS: Her heart rate was 57, blood pressure was 127/62, temperature was 98, respiratory rate was 18 and oxygen saturation was 97% on room air. HEAD, EYES, EARS, NOSE AND THROAT: Showed normocephalic, atraumatic. NECK: Supple. HEART: Showed normal first and second heart sounds with no gallop or murmur. CHEST: Clear to auscultation. No crepitation or rhonchi. ABDOMEN: Distended, soft, nontender. No guarding or rigidity. No organomegaly. All hernial orifices intact. Bowel sounds normal. NEUROLOGIC: She is awake, alert, responding appropriately. All cranial nerves intact. She moves extremities without difficulty. She ambulates with a walker. Her intake over the last 24 hours was 613. No output was recorded. LABORATORY DATA: Her lab work this morning showed her serum sodium was 138, potassium 4, chloride 103, bicarbonate 25, anion gap of 10, BUN 45, creatinine 3.2, estimated GFR was 40 mL per minute. Her glucose was 168, calcium was 8.9. ASSESSMENT: 1. Acute on chronic diastolic congestive heart failure, much improved. 2. Hypertension, well controlled. She is on clonidine TTS patch topically once a week. She is on hydralazine 100 mg 3 times a day, metoprolol 50 mg twice a day. 3. Coronary artery disease, status post PCI with stent deployment. 4. Hyperlipidemia. 5. Anemia, stable. 6. She also has acute on chronic kidney injury, improved. Her creatinine is back to baseline of 3.2. PLAN: The plan is to continue with all her current medication. She apparently has had an echocardiogram, which showed that her left ventricular size is normal. Left ventricular systolic function is normal, ejection fraction of 55-60%, no significant aortic valvular stenosis. To continue her current medication. We will switch her tomorrow to oral diuretics and will be discharged to [facility] to continue the process of rehabilitation there. VINCE PAIGE MD DR: DEEJAY/dilia JOB#: [id number] / [id number]
[2019-07-31 23:10] VITALS: BP 127/65
--- NOTE | 2019-08-01 02:50 | PN ---
DATE: SUBJECTIVE: The patient denies any new medical or neurological complaints. Her tremor has been improved after taking primidone, but she stated she felt very drowsy after that. According to her daughter, the patient has had intermittent double vision for the last 6 months. Therefore, the double vision she is suffering from yesterday, probably is not from a side effect of primidone. She denies chest pain, shortness of breath or palpitation, dysarthria or dysphagia. OBJECTIVE: GENERAL: Well-developed, well-nourished female, not in acute distress. VITAL SIGNS: Blood pressure 127/62, respiratory rate 18, pulse is 57, afebrile, oxygen saturation is not reported. HEENT: Normocephalic, atraumatic, otherwise unremarkable. NECK: Supple. Negative for carotid bruit, lymphadenopathy or thyromegaly. LUNGS: With diminished breath sounds at bases. CARDIOVASCULAR: Regular rate and rhythm, normal S1, S2. ABDOMEN: Soft. Bowel sounds positive. EXTREMITIES: Negative for cyanosis, clubbing or edema. NEUROLOGICAL EXAM: Mental status: The patient is alert and oriented x 3. Speech is fluent. There is no language dysfunction, otherwise unremarkable. Cranial nerves are intact. Motor examination: No focal muscle bulk was seen. The tone is normal. The strength is 4/5 throughout. The patient has mild lips tremor and no tremor of the hands. The tone is normal. Sensory examination revealed normal pinprick and light touch senses throughout. Deep tendon reflexes were symmetric and hypoactive with absent Achilles responses. Gait: Gait not tested today. IMAGING STUDIES: Renal ultrasound revealed no evidence of acute stenosis. IMPRESSION: 1. Senile tremor subsided with primidone, but the patient could not tolerate the medicine. I discussed to probably give her alternative of primidone or a small dose at night as 25 mg at bedtime if the patient had a tremor again. 2. Multiple medical problems including hypertension, coronary artery disease, hyperlipidemia, acute and chronic renal disease, congestive heart failure. RECOMMENDATION: Continue with current management initiated by Dr. Ram. M Darnell STARR MD DR: JAKY/dilia JOB#: [id number] / [id number]
[2019-08-01 05:30] VITALS: BP 125/69
[2019-08-01 06:00] LABS: HEMATOCRIT 25.7 % (36.0-47.0); HEMOGLOBIN 8.5 g/dL (12.0-15.5); RED BLOOD COUNT 2.71 x10^6/uL (3.50-5.40); RED CELL DISTRIBUTION WIDTH 13.6 % (11.5-14.5); WHITE BLOOD COUNT 5.9 x10^3/uL (4.0-11.0)
[2019-08-01 06:13] LABS: ALBUMIN 2.9 g/dL (3.4-5.0); ALBUMIN/GLOBULIN RATIO 0.9 (1.0-1.7); CALCIUM 8.7 mg/dL (8.5-10.1); CREATININE 3.2 mg/dL (0.6-1.0); GFR 13.8; POTASSIUM 3.7 mmol/L (3.5-5.1); TOTAL BILIRUBIN 0.5 mg/dL (0.2-1.0); TOTAL PROTEIN 6.1 g/dL (6.4-8.2)
[2019-08-01] MEDS: INSULIN LISPRO 300 UNITS/3 ML INSULN.PEN. SQ SCH (08:07)
[2019-08-01 08:49] VITALS: BP 147/65
[2019-08-01] MEDS: CLOPIDOGREL BISULFATE 75 MG TABLET PO SCH (08:49)
[2019-08-01] MEDS: FUROSEMIDE 40 MG/4 ML VIAL IVP SCH (08:49)
[2019-08-01] MEDS: GABAPENTIN 300 MG CAPSULE. PO SCH (08:49)
[2019-08-01 08:50] VITALS: BP 147/65
[2019-08-01] MEDS: METOPROLOL TART IMMED RELEASE 50 MG TABLET PO SCH (08:50)
== END 2019-08-01 09:15 | DRG 291 ==
LOC: ER 19:13 → 1 SOUTH 21:21
PROVIDERS: ADMIT Internal Medicine; ATTEND Internal Medicine
DX: I13.0 Hypertensive heart and chronic kidney disease with heart failure and stage 1 through stage 4 chronic kidney disease, or unspecified chronic kidney disease (principal); I50.33 Acute on chronic diastolic (congestive) heart failure; N17.9 Acute kidney failure, unspecified; N18.4 Chronic kidney disease, stage 4 (severe); E86.0 Dehydration; E11.22 Type 2 diabetes mellitus with diabetic chronic kidney disease; Z79.899 Other long term (current) drug therapy; E78.5 Hyperlipidemia, unspecified; D64.9 Anemia, unspecified; E11.42 Type 2 diabetes mellitus with diabetic polyneuropathy; F41.9 Anxiety disorder, unspecified; G89.29 Other chronic pain; F32.9 Major depressive disorder, single episode, unspecified; M19.90 Unspecified osteoarthritis, unspecified site; M54.5 Low back pain; I25.10 Atherosclerotic heart disease of native coronary artery without angina pectoris; Z79.02 Long term (current) use of antithrombotics/antiplatelets; Z79.4 Long term (current) use of insulin; Z79.82 Long term (current) use of aspirin; Z82.3 Family history of stroke; Z82.49 Family history of ischemic heart disease and other diseases of the circulatory system; Z82.5 Family history of asthma and other chronic lower respiratory diseases; Z90.710 Acquired absence of both cervix and uterus; Z95.5 Presence of coronary angioplasty implant and graft; Z91.041 Radiographic dye allergy status
CPT/HCPCS: 36415; 71045; 76770; 80048; 80053; 80061; 81001; 82947; 83605; 83880; 84484; 85025; 85027; 85610; 87040; 87641; 93306; 94640; J1815; J1940; J7620; 97116; 97530; 99285-25; J7030